=== PATIENT | female | born 1985 | race Caucasian/White ===

== ENCOUNTER 2016-10-01 10:56 | Emergency (ER) | payer MEDICAID ==
--- NOTE | 2016-10-01 12:10 | EDPHY ---
H & P Time Seen by Provider: 10/01/16 11:29 HPI/ROS: CHIEF COMPLAINT: toothache HISTORY OF PRESENT ILLNESS: Patient is a 30-year-old female who presents emergency department with left lower frontal tooth ache. Her pain is moderate and does not radiate. Patient states her pain started approximately 1 week ago. It has worsened over the last 2 days. She sustained no recent injury. No fevers or chills. No nausea or vomiting. Patient has had numerous dental extractions previously. Her dentist is unable to accommodate her for another few weeks. REVIEW OF SYSTEMS: My complete review of systems is negative except as mentioned in the HPI. Past Medical/Surgical History: Denies Past surgical history: Denies Smoking Status: Former smoker Physical Exam: General Appearance: Alert and no distress. Head: Pupils equal. Normal. Oral exam: Patient has poor dentition. Her left lower frontal tooth does have some discoloration at the base. There is no surrounding tissue erythema or swelling. There is no visible dental fracture. No facial swelling. No facial redness. Respiratory: No respiratory distress. Cardiac: regular rate and rhythm. Extremities: Full range of motion, normal appearing. Skin: No rashes or lesions. Neuro: Alert. Normal mood and affect. Constitutional: Initial Vital Signs Temperature (C) 36.7 C 10/01/16 11:04 Heart Rate 76 10/01/16 11:04 Respiratory Rate 16 10/01/16 11:04 Blood Pressure 115/73 10/01/16 11:04 O2 Sat (%) 97 10/01/16 11:04 O2 Delivery Mode Room Air Allergies/Adverse Reactions: Bee Stings Allergy (Severe, Uncoded 05/07/16 22:37) Swelling/neck,face,throat Home Medications: Medication Instructions Recorded Albuterol Hfa Anes Only [Proair 2 puffs IH QID 05/07/16 Hfa Icu (*)] Penicillin V Potassium 500 mg PO TID 10 Days 10/01/16 oxyCODONE/APAP 5/325 [Percocet 1 - 2 tab PO Q4PRN PRN #11 tab 10/01/16 5/325 (*)] Medical Decision Making ED Course/Re-evaluation: In the emergency department I discussed possible etiologies. I explained the patient needs to take her entire course of antibiotics. She needs close follow- up with the dentist. She was given Dental Aid referral as well as the option to follow up with her own dentist. Differential Diagnosis: My differential includes but is not limited to toothache, dental caries, dental abscess, cellulitis, dental fracture Departure - Departure Disposition: Home, Routine, Self-Care Clinical Impression: Tooth pain Condition: Good Instructions: Toothache (ED) Additional Instructions: You need close follow-up with a dentist to re-evaluate your tooth. Antibiotics are only a temporary fix. Referrals: NONE *PRIMARY CARE P,. [Primary Care Provider] - As per Instructions Dental Aid [Outside] - 3-4 days, if not improved Prescriptions: Penicillin V Potassium 500 mg PO TID 10 Days oxyCODONE/APAP 5/325 [Percocet 5/325 (*)] 1 - 2 tab PO Q4PRN PRN #11 tab PRN Reason: For Moderate To Severe Pain
[2016-10-01 12:28] VITALS: BP 153/75; PULSE 65; RESP 18; TEMP 98.4; O2SAT 96
== END 2016-10-01 12:28 | disposition home or self-care (01) ==
DX: K08.89 Other specified disorders of teeth and supporting structures (principal); Z87.891 Personal history of nicotine dependence

== ENCOUNTER 2016-12-01 06:38 | Emergency (ER) | payer MEDICAID ==
--- NOTE | 2016-12-01 06:40 | EDPHY ---
H & P HPI/ROS: HPI CHIEF COMPLAINT: Sore throat since this am HISTORY OF PRESENT ILLNESS: This patient very pleasant 30-year-old female no significant medical history, she is currently 2 months , she presents to the emergency room by EMS with sore throat that started earlier this morning approximately 2 hours ago. No cough, no fever, no vomiting. She is able to swallow her secretions appropriately she has no change in voice. Of note on exam here she has 2+ bilateral symmetrical tonsillar bed, exudate present, no signs of SECURITY VEHICLE PATROL OFFICER, Hood's RPA, no change in voice, nontoxic appearing, no trismus. Past Medical History: No significant medical history Past Surgical History: No significant surgical history Social History: Denies daily use drugs alcohol tobacco products Family History: Noncontributory ROS REVIEW OF SYSTEMS: A comprehensive 10 point review of systems is otherwise negative aside from elements mentioned in the history of present illness. Exam Constitutional triage nursing summary reviewed, vital signs reviewed, awake/ alert. Eyes normal conjunctivae and sclera, EOMI, PERRLA. HENT posterior pharynx: 2+ tonsillar beds, symmetrical, exudate present on bilateral tonsillar bed, uvula midline, no signs of SECURITY VEHICLE PATROL OFFICER, atraumatic, moist mucus membranes, no epistaxis, neck supple/ no meningismus, no raccoon eyes. Respiratory clear to auscultation bilaterally, normal breath sounds, no respiratory distress, no wheezing. Cardiovascular rate normal, regular rhythm, no murmur, no edema, distal pulses normal. Gastrointestinal soft, non-tender, no rebound, no guarding, normal bowel sounds, no distension, no pulsatile mass. Genitourinary no CVA tenderness. Musculoskeletal no midline vertebral tenderness, full range of motion, no calf swelling, no tenderness of extremities, no meningismus, good pulses, neurovascularly intact. Skin pink, warm, & dry, no rash, skin atraumatic. Neurologic awake, alert and oriented x 3, AAOx3, moves all 4 extremities equally, motor intact, sensory intact, CN II-XII intact, normal cerebellar, normal vision, normal speech. Psychiatric normal mood/affect. Heme/Lymph/Immune no lymphadenopathy. Differential Diagnosis: Viral pharyngitis, strep pharyngitis, mono, early SECUR[employer] PATROL OFFICER, no signs of RPA plan for this patient patient will be given 1st dose of amoxicillin here as this appears to be strep pharyngitis, Decadron for pain control. She is 2 months . She does also tell me that she has recently treated for urinary tract infection however has not started her antibiotic. I will start her on amoxicillin here and Decadron she understands to contact deformity see to see what antibiotic she was supposed to be started on and contact that prescribe her to let her know that she most likely has strep pharyngitis has been started on amoxicillin. She understands return emergency room if she has worsening symptoms questions or concerns includes high fever, trouble swallowing , worsening pain. 1st dose of amoxicillin given here in emergency room, 1st dose of Decadron. Source: Patient, EMS - Medical/Surgical History Hx Asthma: Yes Hx Chronic Respiratory Disease: No Hx Diabetes: No Hx Cardiac Disease: No Hx Renal Disease: No Hx Cirrhosis: No Hx Alcoholism: No Hx HIV/AIDS: No Hx Splenectomy or Spleen Trauma: No Other PMH: DENIES - Social History Smoking Status: Former smoker Allergies/Adverse Reactions: Bee Stings Allergy (Severe, Uncoded 05/07/16 22:37) Swelling/neck,face,throat Home Medications: Medication Instructions Recorded Amoxicillin 500 mg PO TID 7 Days 12/01/16 Dexamethasone [Decadron 4 MG (*)] 4 mg PO DAILY #5 tab 12/01/16 12/01/16 Departure - Departure Disposition: Home, Routine, Self-Care Clinical Impression: Strep pharyngitis Condition: Good Instructions: Tonsillitis (ED), Strep Throat (ED), Pharyngitis (ED) Additional Instructions: 1. Make sure to drink lots of fluids stay well-hydrated 2. return emergency room if you have any worsening symptoms questions or concerns. 3.Take amoxicillin as prescribed. 4. You can take Decadron which is steroid to help reduce inflammation. He may also take Tylenol for pain control. Referrals: Patient,NotPresent [Primary Care Provider] - As per Instructions Prescriptions: Amoxicillin 500 mg PO TID 7 Days Dexamethasone [Decadron 4 MG (*)] 4 mg PO DAILY #5 tab
[2016-12-01] MEDS ORDERED: DEXAMETHASONE 4 MG TAB PO ONE (06:45)
[2016-12-01 08:43] VITALS: BP 129/70; PULSE 86; RESP 16; TEMP 97.9; O2SAT 97
== END 2016-12-01 08:43 | disposition home or self-care (01) ==
LOC: EDUNIT#
DX: O99.519 Diseases of the respiratory system complicating pregnancy, unspecified trimester (principal); J02.0 Streptococcal pharyngitis; J45.909 Unspecified asthma, uncomplicated; Z87.891 Personal history of nicotine dependence; Z3A.00 Weeks of gestation of pregnancy not specified

== ENCOUNTER 2016-12-21 07:56 | Emergency (ER) | payer MEDICAID ==
--- NOTE | 2016-12-21 08:01 | EDPHY ---
H & P Time Seen by Provider: 12/21/16 08:01 - Medical/Surgical History Hx Asthma: Yes Hx Chronic Respiratory Disease: No Hx Diabetes: No Hx Cardiac Disease: No Hx Renal Disease: No Hx Cirrhosis: No Hx Alcoholism: No Hx HIV/AIDS: No Hx Splenectomy or Spleen Trauma: No Other PMH: DENIES - Social History Smoking Status: Former smoker Constitutional: Initial Vital Signs Temperature (C) 36.8 C 12/21/16 08:02 Heart Rate 72 12/21/16 08:02 Respiratory Rate 16 12/21/16 08:02 Blood Pressure 137/82 H 12/21/16 08:02 O2 Sat (%) 97 12/21/16 08:02 O2 Delivery Mode Room Air Allergies/Adverse Reactions: Bee Stings Allergy (Severe, Uncoded 05/07/16 22:37) Swelling/neck,face,throat Home Medications: Medication Instructions Recorded Amoxicillin 500 mg PO TID 7 Days 12/01/16 Dexamethasone [Decadron 4 MG (*)] 4 mg PO DAILY #5 tab 12/01/16 12/01/16 Cephalexin [Keflex (RX)] 500 mg PO TID #30 cap 12/21/16 Medical Decision Making ED Course/Re-evaluation: CHIEF COMPLAINT: "My throat feels really swollen" HISTORY OF PRESENT ILLNESS: The patient is a 9-week 30 y/o female complaining of a sore throat with painful swallowing. She was seen here 3 weeks ago for a sore throat and prescribed amoxicillin and Decadron. Those symptoms resolved until 3 days ago when her sore throat returned. It is not associated with swelling and pain with swallowing. She denies cough, fever, vomiting, abdominal pain, or diarrhea. No other pertinent medical history. REVIEW OF SYSTEMS: A 10 point review of systems was performed and is negative with the exception of the elements mentioned in the history of present illness. PHYSICAL EXAM: HR, BP, O2 Sat, RR. Temp noted General Appearance: Alert, well hydrated, appropriate, and non-toxic appearing. Obese. Head: Atraumatic without scalp tenderness or obvious injury Eyes: Pupils equal, round, reactive to light and accommodation, EOMI, no trauma , no injection. Ears: Clear bilaterally, no perforation, normal landmarks Nose: Atraumatic, no rhinorrhea, clear. Throat: Significant erythema and swollen tonsils bilaterally, no exudates, no lesions, mucus membranes moist. Hoarse voice. No stridor. Neck: Supple, nontender, no lymphadenopathy. Respiratory: No retractions, no distress, no wheezes, and no accessory muscle use. Lungs are clear to auscultation bilaterally. Cardiovascular: Regular rate and rhythm, no murmurs, rubs, or gallops. Good capillary refill all extremities. Gastrointestinal: Abdomen is soft, nontender, non-distended, no masses, no rebound, no guarding, no peritoneal signs. Musculoskeletal: Normal active ROM of all extremities, atraumatic. Neurological: Alert, appropriate, and interactive. Nonfocal neuro exam. Skin: No rashes, good turgor, no nodules on palpation. Past medical history: 9-weeks Past surgical history: denies Family history: noncontributory Social history: Lives in [place]. In a relationship. DIFFERENTIAL DIAGNOSIS: The differential diagnosis for the patient's sore throat included but was not limited to tonsillitis, bacterial or viral pharyngitis, pneumonia, viral syndrome, and sepsis. MEDICAL DECISION MAKING: This is a 30 y/o female presenting with a 3-day history of significant pain with swallowing. She was treated for bacterial pharyngitis 3 weeks ago and her symptoms improved until recurring 3 days ago. On exam, she has significant pharyngeal erythema with bilateral tonsillar swelling. She has no signs of respiratory distress. Due to , I will not prescribe her steroids or pain medication. She will be discharged with script for Keflex and recommendation to use Tylenol and ibuprofen as needed for pain. She's been referred to ENT for follow up. She is comfortable with this plan. Return precautions given. Departure - Departure Disposition: Home, Routine, Self-Care Clinical Impression: Tonsillitis Condition: Good Instructions: Tonsillitis (ED) Additional Instructions: 1. Take Keflex as prescribed. Be sure to complete the entire prescription. 2. Use Tylenol or ibuprofen as directed on the packaging if needed for pain or fever for the next 2-3 days. 3. Follow up with ENT if your symptoms persist for more than a week or if you continue to get recurrent throat infections. 4. Return to the ED for difficulty breathing, inability to swallow, or other worsening of condition. Referrals: NONE *PRIMARY CARE P,. [Primary Care Provider] - As per Instructions Pavel Meier MD [Medical Doctor] - As per Instructions Prescriptions: Cephalexin [Keflex (RX)] 500 mg PO TID #30 cap Report Scribed for: Mike Sanchez Report Scribed by: Florence Payne Date of Report: 12/21/16 Time of Report: 08:09
[2016-12-21 08:03] VITALS: RESP 16
[2016-12-21 08:15] VITALS: BP 120/75; PULSE 70; TEMP 97.7; O2SAT 96
== END 2016-12-21 08:14 | disposition home or self-care (01) ==
DX: O99.511 Diseases of the respiratory system complicating pregnancy, first trimester (principal); J03.90 Acute tonsillitis, unspecified; J45.909 Unspecified asthma, uncomplicated; Z3A.09 9 weeks gestation of pregnancy; Z87.891 Personal history of nicotine dependence

== ENCOUNTER 2017-03-13 08:10 | Observation (INO) | payer MEDICAID ==
--- NOTE | 2017-03-13 10:22 | SOAPPROG ---
SOAP Progress Note Assessment/Plan: Assessment: at 20w6d EGA here for concern for davide discharge at home No e/o active bleeding, abruption, previa, labor, distress No e/o UTI No e/o vaginal infection Plan: Discharge home Pelvic rest x 72 hours Given note to be off work today Vaginal culture collected F/u as scheduled with Dr. Pearson Subjective: 31 yo ( x 1 2011, SAB x 2 prior to first ) at 20 6/7 weeks of here for evaluation for abnormal discharge. So far uncomplicated per her report, follows with Dr. Pearson. First c/b GHTN at term. Had anatomy US last week and was told everything was normal, no previa. Today woke up and had some "orange" colored discharge. No bright red blood. Put some toilet paper up into vagina and confirmed this is where the discharge was coming from. No cramping or pain. Active baby, feels fluttering. No intercourse in last 24 hours. She tried calling her doctor but was unable to leave a message and per her the message stated "we will only call you back if you have caller ID". Since she wasn't sure she called 911 to ask advice but was told they could not give her medical advice. At that time she decided to come to the closest hospital for evaluation. She also delivered at [facility] for her last , and would like to deliver here with this one. Is supposed to be delivered at [facility] Objective: VS reviewed, WNL Gen: NAD, obese female Resp: unlabored CV: RRR Abd: obese, soft, nontender Ext: no edema SSE: cervix long/closed. No blood in vault. Physiologic discharge SVE: long/closed FHR 160s Bedside US: anterior placenta, no previa. Viable SIUP in breech presentation - Time Spent With Patient Time Spent With Patient: 35 minutes ICD10 Worksheet Patient Problems: Problems Problem Status Onset 20 weeks gestation of Acute
== END 2017-03-13 10:30 | disposition home or self-care (01) ==
LOC: FLD 08:10
PROVIDERS: ADMIT Obstetrics & Gynecology; ATTEND Obstetrics & Gynecology
DX: O23.92 Unspecified genitourinary tract infection in pregnancy, second trimester (principal); Z3A.20 20 weeks gestation of pregnancy
CPT/HCPCS: G0378 ×2

== ENCOUNTER 2017-05-20 13:50 | Emergency (ER) | payer MEDICAID ==
[2017-05-20 13:55] VITALS: RESP 18
--- NOTE | 2017-05-20 15:36 | EDPHY ---
H & P Smoking Status: Never smoked Time Seen by Provider: 05/20/17 15:05 HPI/ROS: CHIEF COMPLAINT: "I have a bump on my buttock" HISTORY OF PRESENT ILLNESS: 31-year-old female currently 30 weeks , no history of chronic skin infections or known history of cutaneous MRSA, complaining of 2 weeks of a progressively enlarging tender draining area at the cleft of her buttock. Her friend has been puncturing the area with purulent foul-smelling material however the enlargement continues. No fever no chills. No nausea or vomiting. No flu-like symptoms. PHYSICAL EXAM (Prior to examination, patient consented to physical exam, hands were washed and my usual and customary physical exam procedures followed) 1) GENERAL: Well-developed, well-nourished, alert and oriented. Appears to be in no acute distress. 2) HEAD: Normocephalic 3) HEENT: sclera anicteric 4) LUNGS: Breathing comfortably. 5) SKIN (with female nurse Adeola at bedside): Pilonidal abscess, draining. No extension to the perianal region. (Lizzie Lassiter) Constitutional: Initial Vital Signs Temperature (C) 36.6 C 05/20/17 13:52 Heart Rate 78 05/20/17 13:52 Respiratory Rate 18 05/20/17 13:52 Blood Pressure 163/103 H 05/20/17 13:52 O2 Sat (%) 98 05/20/17 13:52 O2 Delivery Mode Room Air Allergies/Adverse Reactions: Bee Stings Allergy (Severe, Uncoded 05/07/16 22:37) Swelling/neck,face,throat Home Medications: Medication Instructions Recorded 12/01/16 Cephalexin [Keflex] 500 mg PO TID 7 Days cap 05/20/17 MDM/Departure - MDM Procedures: Procedure: Abscess drainage. The patient's abscess was located on the cleft of the buttock. I obtained verbal consent from the patient to drain the abscess who was informed about the possibility of bleeding and pain. The abscess was incised with a scalpel and a large amount of purulent drainage was expressed. I irrigated the wound and placed some packing. The patient tolerated the procedure well. The procedure was performed by myself. (Lizzie Lassiter) ED Course/Re-evaluation: Patient has evidence of pilonidal abscess which was incised, drained. Started on Keflex. Recommend return to the ER in 2 days for recheck. Usual customary wound precautions instructions provided. (Lizzie Lassiter) I did not see this patient while she was in the emergency department. However her care was discussed with PA while the patient was in the department. I agree with treatment plan and management (Gerald Carpio) - Depart Disposition: Home, Routine, Self-Care Clinical Impression: Pilonidal abscess Condition: Good Instructions: Pilonidal Cyst (ED) Additional Instructions: Return to the ER if you develop redness, swelling, discharge, warmth to the wound, pain with defecation, or any other symptoms that concern you. Prescriptions: Cephalexin [Keflex] 500 mg PO TID 7 Days cap Referrals: Return, to the ER in 2 days for recheck [Other] - As per Instructions
[2017-05-20 15:46] VITALS: BP 152/82; PULSE 91; TEMP 98.1; O2SAT 94
== END 2017-05-20 15:47 | disposition home or self-care (01) ==
PROC: 0H98XZZ Drainage of Buttock Skin, External Approach (ICD-10-PCS; principal; 2017-05-20)
DX: O99.713 Diseases of the skin and subcutaneous tissue complicating pregnancy, third trimester (principal); L05.01 Pilonidal cyst with abscess; Z3A.30 30 weeks gestation of pregnancy

== ENCOUNTER 2017-05-22 11:07 | Emergency (ER) | payer MEDICAID ==
[2017-05-22 11:28] VITALS: BP 145/78; PULSE 88; RESP 16; TEMP 98.1; O2SAT 98
--- NOTE | 2017-05-22 12:17 | EDPHY ---
H & P Smoking Status: Never smoked Time Seen by Provider: 05/22/17 11:39 HPI/ROS: CHIEF COMPLAINT: Wound recheck HISTORY OF PRESENT ILLNESS: 31-year-old female presents to the emergency department with an abscess recheck to her buttocks. Patient was seen 2 days ago for incision and drainage. She was started on antibiotics. She has an incision and drainage and had packing placed. She denies fevers. She has had some drainage sister has been changing the bandage. ROS: Denies fevers, chills, back pain (Nayely Henao) Past Medical/Surgical History: 30 weeks (Nayely Henao) Social History: (Nayely Henao) Physical Exam: On examination the patient has packing placed in the left buttock. There is some surrounding induration. Packing was easily removed. No recurring purulent drainage noted. Minimally tender to palpate. No lymphangitis. No surrounding redness. (Nayely Henao) Constitutional: Initial Vital Signs Temperature (C) 36.7 C 05/22/17 11:26 Heart Rate 88 05/22/17 11:26 Respiratory Rate 16 05/22/17 11:26 Blood Pressure 145/78 H 05/22/17 11:26 O2 Sat (%) 98 05/22/17 11:26 O2 Delivery Mode Room Air Allergies/Adverse Reactions: Bee Stings Allergy (Severe, Uncoded 05/07/16 22:37) Swelling/neck,face,throat Home Medications: Medication Instructions Recorded 12/01/16 Cephalexin [Keflex] 500 mg PO TID 7 Days cap 05/20/17 MDM/Departure - MDM Procedures: Packing was easily removed. No further purulent drainage. (Monica Henaomargarette Chew) ED Course/Re-evaluation: 31-year-old female presents with recheck of abscess to her buttock. Packing was removed. She will continue antibiotics. I encouraged warm soaks. (Nayely Henao) - Depart Disposition: Home, Routine, Self-Care Clinical Impression: Encounter for recheck of abscess following incision and drainage Condition: Good Instructions: Abscess Follow-up (ED) Additional Instructions: Continue antibiotics as prescribed. Soak buttock in warm water as discussed. Return to the emergency department if you developed recurring swelling, fever, or if you feel worse in any way. Referrals: Chani Paredes MD [[facility] Primary Care Provider] - 2-3 days, call for appt. (Primary care provider library consultant)
== END 2017-05-22 12:22 | disposition home or self-care (01) ==
DX: O99.89 Other specified diseases and conditions complicating pregnancy, childbirth and the puerperium (principal); Z3A.30 30 weeks gestation of pregnancy; Z48.01 Encounter for change or removal of surgical wound dressing

== ENCOUNTER 2017-06-11 23:26 | Observation (INO) | payer MEDICAID ==
[2017-06-12] MEDS ORDERED: FAMOTIDINE 20 MG TAB PO SCH (00:45)
== END 2017-06-12 01:00 | disposition home or self-care (01) ==
LOC: FLD 23:26
PROVIDERS: ADMIT Obstetrics & Gynecology Gynecology; ATTEND Obstetrics & Gynecology Gynecology
DX: O26.893 Other specified pregnancy related conditions, third trimester (principal); R10.13 Epigastric pain; Z3A.33 33 weeks gestation of pregnancy
CPT/HCPCS: 59025; G0378

== ENCOUNTER 2017-06-19 11:12 | Emergency (ER) | payer MEDICAID ==
[2017-06-19 11:17] VITALS: TEMP 97.9; O2SAT 96
--- NOTE | 2017-06-19 12:31 | EDPHY ---
HPI/HX/ROS/PE/MDM Narrative: CHIEF COMPLAINT: Cold symptoms HISTORY OF PRESENT ILLNESS: This patient is an obese 31 y/o female who is currently 34 weeks arriving with her complaining of cold symptoms onset three days ago. She endorses productive cough with greenish sputum, sore throat, congestion, chest tightness, and subjective fever. She has history of asthma and has been using her inhaler. She has not slept in three days due to cough. She had a bloody nose yesterday. She has only taken Benadryl for symptom relief. She tried tea, but felt it made her throat more dry. She states her baby seems normal and is moving. No chills, chest pain, shortness of breath, palpitations, vomiting, diarrhea, urinary complaints, headache, lightheadedness. REVIEW OF SYSTEMS: Aside from elements discussed in the HPI, a comprehensive 10-point review of systems was reviewed and is negative. PAST MEDICAL HISTORY: Asthma. . SOCIAL HISTORY: . at bedside. OB Dr. Pearson. VITAL SIGNS: see nurse's notes. GENERAL: Obese, well-developed, well-nourished, in no acute distress. HEENT: Atraumatic Eyes: PERRL, EOMI, no conjunctival injection. Ears: TM clear bilaterally. Nose: No discharge. Mouth: moist mucous membranes. Pharynx: no erythema, no exudates, no swelling, no abscess. Uvula is midline. NECK: Supple, no adenopathy, no meningismus, no tenderness. Negative Kernig's and Brudzinski's. LUNGS: Expiratory wheezes with cough. No rhonchi or rales. CARDIAC: Regular rate and rhythm, no rubs, murmurs or gallops. ABDOMEN: Gravid. Soft, nontender, bowel sounds normal. BACK: No CVA tenderness. EXTREMITIES: Normal, no edema, FROM. NEURO: Alert and oriented, grossly nonfocal. SKIN: Warm and dry, no rash. PSYCHIATRIC: Normal mentation, no agitation. Portions of this note were transcribed by a registered medical assistant. I personally performed a history, physical exam, medical decision making, and confirmed accuracy of information the transcribed note. ED Course: 31 y/o female who is 34 weeks presents with three day history of productive cough, sore throat, and congestion. Plan to discharge home in good condition after heart tone monitoring with prescription for Amoxicillin. Discussed use of Flonase and encouraged continued use of Albuterol as well as a humidifier for symptom relief. She will follow up with her COMPLIANCE ADMINISTRATOR. 13:12 heart tones 150. Patient cleared for discharge. MDM: Differential diagnosis of the patient's symptom complex was considered including but not limited to viral upper respiratory infection, viral pharyngitis, strep pharyngitis, bacterial pharyngitis, tonsillitis, influenza, pulmonary embolism. General Time Seen by Provider: 06/19/17 12:22 Initial Vital Signs: Initial Vital Signs Temperature (C) 36.6 C 06/19/17 11:15 Heart Rate 83 06/19/17 11:15 Respiratory Rate 18 06/19/17 11:15 Blood Pressure 147/74 H 06/19/17 11:15 O2 Sat (%) 96 06/19/17 11:15 O2 Delivery Mode Room Air Allergies/Adverse Reactions: Bee Stings Allergy (Severe, Uncoded 06/19/17 11:15) Swelling/neck,face,throat Home Medications: Medication Instructions Recorded 12/01/16 Amoxicillin Trihydrate 500 mg PO TID 7 Days cap 06/19/17 [Amoxicillin] Departure - Departure Disposition: Home, Routine, Self-Care Clinical Impression: Upper respiratory infection Qualifiers: URI type: unspecified viral URI Qualified Code(s): J06.9 - Acute upper respiratory infection, unspecified Acute bronchitis Qualifiers: Bronchitis organism: other organism Qualified Code(s): J20.8 - Acute bronchitis due to other specified organisms Condition: Good Instructions: Upper Respiratory Infection (ED), Acute Bronchitis (ED) Additional Instructions: Take Amoxicillin as prescribed. It is important to finish your entire course of antibiotics even if you are feeling better. Use Flonase nasal spray, available over the counter to relieve your congestion. Continue to use your Albuterol inhaler. Use a humidifier in your room at night to help with the cough. Stay well-hydrated by drinking plenty of fluids. Be sure to get lots of rest. Follow up with your COMPLIANCE ADMINISTRATOR physician for further discussion of what medications you can take to relieve symptoms and for reevaluation. Return to the emergency department immediately for high fever, severe headache or neck pain, difficulty breathing, abdominal pain, rash or other worsening of condition. Referrals: Roberto Pearson [Medical Doctor] - As per Instructions Prescriptions: Amoxicillin Trihydrate [Amoxicillin] 500 mg PO TID 7 Days cap Report Scribed for: Divina Tristan Report Scribed by: Maru Sanchez Date of Report: 06/19/17 Time of Report: 12:38
[2017-06-19 13:39] VITALS: BP 138/77; PULSE 20; RESP 77
== END 2017-06-19 13:37 | disposition home or self-care (01) ==
DX: O99.513 Diseases of the respiratory system complicating pregnancy, third trimester (principal); J06.9 Acute upper respiratory infection, unspecified; J20.8 Acute bronchitis due to other specified organisms; J45.909 Unspecified asthma, uncomplicated; Z3A.34 34 weeks gestation of pregnancy

== ENCOUNTER 2017-07-05 14:58 | Observation (INO) | payer MEDICAID ==
--- NOTE | 2017-07-05 15:20 | OBPROG ---
Labor Progress Note Assessment/Plan: Assessment: Denies contractions complaint of headache behind right eye blurry vision spots before eyes dizzy nausea denies epigastric pain cat 1 fhr deferred exam no complaint of contractions Plan:pih labs, obtain prenatals, iv fluids, zofran for nausea 07/05/17 15:17 07/05/17 15:24 Subjective/Intrapartum Course: 07/05/17 15:20 headache, blurry vision, sharp pain from fundus to vagina, nausea, denies contractions leaking ,bleeding, cramping, feeling movement. - FHR Assessment Valencia FHR (bpm): 135 FHR Pattern Variability: Moderate FHR Category: 1 ICD10 Worksheet Patient Problems: Problems Problem Status Onset 20 weeks gestation of Acute
[2017-07-05] MEDS ORDERED: LR 1,000 ML IV SCH (15:30)
[2017-07-05 15:59] LABS: % IMMATURE GRANULYOCYTES 0.6 % (0.0-1.1); ABSOLUTE IMMATURE GRANULOCYTES 0.06 10^3/uL (0.00-0.10); ADD DIFF? NO; ADD MORPH? NO; ADD SCAN? NO; ATYPICAL LYMPHOCYTE FLAG 0 (0-99); FRAGMENT RBC FLAG 0 (0-99); HEMATOCRIT 37.2 % (38.0-47.0); HEMOGLOBIN 12.7 g/dL (12.6-16.3); LEFT SHIFT FLG 0 (0-99); LIPEMIA HEMOLYSIS FLAG 90 (0-99); MEAN CELL HEMOGLOBIN 30.5 pg (27.9-34.1); MEAN CELL HEMOGLOBIN CONCENTR. 34.1 g/dL (32.4-36.7); MEAN CELL VOLUME 89.2 fL (81.5-99.8); MEAN PLATELET VOLUME 11.3 fL (8.7-11.7); PLATELET CLUMPS FLAG 0 (0-99); PLATELET COUNT 253 10^3/uL (150-400); RED BLOOD CELL COUNT 4.17 10^6/uL (4.18-5.33); RED CELL DISTRIBUTION WIDTH 14.8 % (11.5-15.2)
[2017-07-05 16:00] LABS: ALANINE AMINOTRANSFERASE 17 IU/L (9-52); ASPARTATE AMINOTRANSFERASE 13 IU/L (14-46); BILIRUBIN,TOTAL 0.2 mg/dL (0.1-1.4); BILIRUBIN-CONJUGATED 0.2 mg/dL (0.0-0.5); CREATININE 0.6 mg/dL (0.6-1.0); GLOMERULAR FILTRATION RATE > 60; LACTATE DEHYDROGENASE 384 IU/L (313-618); URIC ACID 4.4 mg/dL (2.5-6.8)
[2017-07-05] MEDS ORDERED: ACETAMINOPHEN 500 MG TAB ONE (16:31)
--- NOTE | 2017-07-05 20:03 | OBPROG ---
Labor Progress Note Assessment/Plan: Assessment: Denies contractions headache better after tylenol fluids and food blurry vision resolved with rest spots before eyes/ resolved nausea and dizziness resolved with food, water and rest denies epigastric pain cat 1 fhr deferred exam no complaint of contractions denies epigastric pain pih labs wnl pto c random urine 0.[address] ava villasenor ok + movement denies leaking , bleeding, or cramping before dischagre verbalized understanding of POC Plan:pih symptoms discussed fu at patients practice discussed elevated bp discussed labs and copy given patient verbalized understanding of POC 07/05/17 15:17 07/05/17 15:24 07/05/17 19:59 Subjective/Intrapartum Course: 07/05/17 15:20 headache, blurry vision, sharp pain from fundus to vagina, nausea, denies contractions leaking ,bleeding, cramping, feeling movement. Objective: 07/05/17 15:36 07/05/17 15:36 Uric Acid 4.4 mg/dL (2.5-6.8) 07/05/17 15:36 Total Bilirubin 0.2 mg/dL (0.1-1.4) 07/05/17 15:36 Conjugated Bilirubin 0.2 mg/dL (0.0-0.5) 07/05/17 15:36 Unconjugated Bilirubin 0.0 mg/dL (0.0-1.1) 07/05/17 15:36 AST 13 IU/L (14-46) L 07/05/17 15:36 ALT 17 IU/L (9-52) 07/05/17 15:36 Lactate Dehydrogenase 384 IU/L (313-618) 07/05/17 15:36 Oxytocin Orders Assessment - Pre-Induction/Augmentation Assessment Gestational Age: 38 week(s) and 3 day(s) ICD10 Worksheet Patient Problems: Problems Problem Status Onset 20 weeks gestation of Acute
--- NOTE | 2017-07-05 20:32 | GHP ---
[f rep st] HISTORY AND PHYSICAL DATE OF ADMISSION: 07/05/2017 HISTORY OF PRESENT ILLNESS: The patient is a 31-year-old, 4, para 1, A2 , living 1, who comes in on 07/05/2017 with complaints of abdominal pain, headache, blurry vision, dizziness, back pain. States feeling positive movement. Denies leaking, bleeding or cramping. Has been routinely seen at [facility] in [place] per patient. The patient is also supposed to have a visit on , 07/08/2017. The patient's EDC is 07/26/2017 which makes her 37 weeks. MEDICAL HISTORY: Elevated BMI, anemia. SURGICAL HISTORY: Benign. Denies gynecological surgery. Denies surgery. FAMILY HISTORY: Mother has diabetes mellitus, heart disease and hypertension. GYNECOLOGICAL HISTORY: Menarche at the age of 10. Heavy flow. No control, per patient. SOCIAL HISTORY: Denies tobacco use. Denies drug use. Occasional caffeine. has 1 other child. PREVIOUS HISTORY: In 10/31/2011 at 38 weeks, 7 pounds 1 ounce, a female vaginally with an epidural. Debbie is that child's name. REVIEW OF SYSTEMS: Times 7 is benign. States dizzy, blurry vision, nausea, and headache, PRESENT HISTORY: Patient had an early ultrasound that gave her a due date of 07/26/2017, us was done at 6 weeks and 2 days. Today, patient's main complaint was diffuse headache, blurry vision, spots, abdominal pain that went from the upper fundus down to the vaginal area that was sharp. On admission patient had elevated blood pressure. PIH labs were drawn that were negative. P to C ratio was 0.225. Consult with Dr. Ivonne Mathews on plan of care. The patient was discharged home with instructions to follow up on with Dr. Roberto Pearson. PHYSICAL EXAMINATION: GENERAL: Patient is awake, alert, oriented x3. LUNGS: Clear bilaterally. ABDOMEN: Bowel sounds are positive in all 4 quadrants. EXTREMITIES: DTRs were 1+ bilaterally. No clonus was noted. Homans sign was negative bilaterally. All of patient's symptoms except for her headache resolved. Tylenol 1 g was given for her headache. Everything seemed to get better with rest, food and fluids. The patient was instructed on PIH symptoms and verbalized understanding of reasons to call her provider if symptoms got worse.Understood need to keep fu appt on . /[id number]/MODL MTDD
== END 2017-07-05 19:53 | disposition home or self-care (01) ==
LOC: FLD 14:58
PROVIDERS: ADMIT Advanced Practice Midwife; ATTEND Advanced Practice Midwife
DX: O99.89 Other specified diseases and conditions complicating pregnancy, childbirth and the puerperium (principal); Z3A.38 38 weeks gestation of pregnancy; R51 Headache; R10.9 Unspecified abdominal pain

== ENCOUNTER 2017-07-14 20:08 | Inpatient (IN) | payer MEDICAID ==
[2017-07-14 21:31] LABS: PLATELET COUNT 276 10^3/uL (150-400)
[2017-07-14] MEDS ORDERED: CALCIUM GLUC 10% 1 GM/10 ML VIAL IVP PRN ×2 (23:02)
[2017-07-14] MEDS ORDERED: MAGNESIUM SULF 4 GM/WATER 100 ML IV ONE ×2 (23:04)
[2017-07-14] MEDS ORDERED: OLIVE OIL 118 ML BTL MISC PRN ×2 (23:08)
[2017-07-14] MEDS ORDERED: EPSOM SALT 454 GM TP PRN ×2 (23:08)
[2017-07-14] MEDS ORDERED: OXYTOCIN 20 UNIT in LR 1,000 ML IV PRN (23:08)
[2017-07-14] MEDS ORDERED: TERBUTALINE SULFATE 1 MG/ML VIAL IV PRN ×2 (23:08)
[2017-07-14] MEDS ORDERED: LR 1,000 ML IV PRN ×2 (23:08)
[2017-07-14] MEDS ORDERED: IBUPROFEN 600 MG TAB PO PRN ×2 (23:08)
[2017-07-15] MEDS ORDERED: CALCIUM CARBONATE 500 MG CHEWABLE TAB PO PRN ×2 (00:51)
--- NOTE | 2017-07-15 01:34 | PDGENHP ---
History and Physical - Chief Complaint headache, cramping - History of Present Illness 31-year-old white female at 38.2 weeks gestation (EDC 07/26/17 by 9 week scan) presents to L&D with complaints of headache and contraction pain. Patient was found to have irregular contractions, 1cm/thick cervix, and elevated BPs. She is a patient of [facility] in [place]. Upon review of her record, her is complicated by morbid obesity and chronic hypertension. She reports headache today across her forehead. She reports spots in vision over past 2 days. BPs were 140s-170s/80s-100s while being evaluated in triage. Patient denies RUQ pain. She reports swelling in all 4 extremities. O+ / Antibody screen negative / rubella immune / WDRL NR / HBsAg Negative / HIV Neg / HCV Neg / GC Neg/Neg / 1 Hr GTT 187 (3 hr not done) / GBS negative (performed 07/08/17). OB Hx: G1 & G2 = SAB, G3 = of VFI (10/31/11), 7#1oz History Information - Allergies/Home Medication List Allergies/Adverse Reactions: Bee Stings Allergy (Severe, Uncoded 06/19/17 11:15) Swelling/neck,face,throat Home Medications: 12/01/16 [Last Taken Unknown] I have personally reviewed and updated: family history, medical history, social history, surgical history Past Medical History: morbid obesity - Surgical History Additional surgical history: denies prior [employer] surgery - Family History Positive for: non-pertinent - Social History Smoking Status: Former smoker Review of Systems Review of Systems: ROS: 10pt was reviewed & negative except for what was stated in HPI & below Physical Exam Physical Exam: Severe range systolic BPs Constitutional: no apparent distress Eyes: PERRL Ears, Nose, Mouth, Throat: moist mucous membranes Cardiovascular: regular rate and rhythym, no murmur, rub, or gallop Respiratory: no respiratory distress, no rales or rhonchi, clear to auscultation Gastrointestinal: other (morbidly obese abdomen, difficult to palpate uterus on exam and bimanual exam) Skin: warm Neurologic: AAOx3, sensation intact bilaterally, other (normal deep tendon reflexes) Psychiatric: interacting appropriately, not anxious, not encephalopathic Lab Data & Imaging Review 07/14/17 21:10 07/14/17 21:10 WBC 11.05 10^3/uL (3.80-9.50) H 07/14/17 21:10 RBC 4.33 10^6/uL (4.18-5.33) 07/14/17 21:10 Hgb 13.3 g/dL (12.6-16.3) 07/14/17 21:10 Hct 39.0 % (38.0-47.0) 07/14/17 21:10 MCV 90.1 fL (81.5-99.8) 07/14/17 21:10 MCH 30.7 pg (27.9-34.1) 07/14/17 21:10 MCHC 34.1 g/dL (32.4-36.7) 07/14/17 21:10 RDW 14.8 % (11.5-15.2) 07/14/17 21:10 Plt Count 276 10^3/uL (150-400) 07/14/17 21:10 MPV 11.3 fL (8.7-11.7) 07/14/17 21:10 Neut % (Auto) 72.1 % (39.3-74.2) 07/14/17 21:10 Lymph % (Auto) 16.7 % (15.0-45.0) 07/14/17 21:10 [place] % (Auto) 9.0 % (4.5-13.0) 07/14/17 21:10 Eos % (Auto) 0.9 % (0.6-7.6) 07/14/17 21:10 Baso % (Auto) 0.5 % (0.3-1.7) 07/14/17 21:10 Nucleat RBC Rel Count 0.0 % (0.0-0.2) 07/14/17 21:10 Absolute Neuts (auto) 7.98 10^3/uL (1.70-6.50) H 07/14/17 21:10 Absolute Lymphs (auto) 1.84 10^3/uL (1.00-3.00) 07/14/17 21:10 Absolute Monos (auto) 0.99 10^3/uL (0.30-0.80) H 07/14/17 21:10 Absolute Eos (auto) 0.10 10^3/uL (0.03-0.40) 07/14/17 21:10 Absolute Basos (auto) 0.05 10^3/uL (0.02-0.10) 07/14/17 21:10 Absolute Nucleated RBC 0.00 10^3/uL (0-0.01) 07/14/17 21:10 Immature Gran % 0.8 % (0.0-1.1) 07/14/17 21:10 Immature Gran # 0.09 10^3/uL (0.00-0.10) 07/14/17 21:10 BUN 9 mg/dL (7-23) 07/14/17 21:10 Creatinine 0.6 mg/dL (0.6-1.0) 07/14/17 21:10 Estimated GFR > 60 07/14/17 21:10 Uric Acid 4.8 mg/dL (2.5-6.8) 07/14/17 21:10 Total Bilirubin 0.2 mg/dL (0.1-1.4) 07/14/17 21:10 Conjugated Bilirubin 0.2 mg/dL (0.0-0.5) 07/14/17 21:10 Unconjugated Bilirubin 0.0 mg/dL (0.0-1.1) 07/14/17 21:10 AST 16 IU/L (14-46) 07/14/17 21:10 ALT 25 IU/L (9-52) 07/14/17 21:10 Lactate Dehydrogenase 596 IU/L (313-618) 07/14/17 21:10 Patient ABO/Rh O POSITIVE 07/14/17 21:10 Antibody Screen NEGATIVE 07/14/17 21:10 Urine dipstick: Protein 100 Assessment & Plan Assessment: 31-year-old @ 38.2 weeks with: 1. severe pre-eclampsia superimposed on chronic hypertension. 2. Morbid obesity. Plan: Admit for IOL and magnesium sulfate for seizure prophylaxis. Serial vitals and labs will be performed.
[2017-07-15] MEDS ORDERED: TERBUTALINE SULFATE 1 MG/ML VIAL ONE ×2 (01:41)
[2017-07-15] MEDS ORDERED: LIDOCAINE 1% 300 MG/30 ML SDV ONE ×2 (01:41)
[2017-07-15] MEDS ORDERED: AMMONIA AROMATIC 1 EACH AMP IH ONE ×2 (01:41)
[2017-07-15] MEDS ORDERED: OLIVE OIL 118 ML BTL ONE ×2 (01:41)
[2017-07-15] MEDS ORDERED: OXYTOCIN 10 UNIT/ML VIAL ONE ×2 (01:42)
[2017-07-15] MEDS ORDERED: MISOPROSTOL 200 MCG TAB ONE ×2 (01:42)
[2017-07-15] MEDS: MISOPROSTOL 100 MCG TAB PO SCH ×8 (01:43→18:49)
[2017-07-15] MEDS: ACETAMINOPHEN 325 MG TAB PO PRN ×8 (02:02→19:40)
[2017-07-15] MEDS: Mag Sulf 500 ML IV SCH ×2 (02:28)
[2017-07-15] MEDS ORDERED: LABETALOL HCL 5 MG/ML 20 ML MDV IVP ONE ×2 (08:51)
--- NOTE | 2017-07-15 09:09 | OBPROG ---
Labor Progress Note Assessment/Plan: Assessment: 31 yo @ 38.3 weeks gestation with severe preeclampsia. Plan: Continue cervical ripening with misoprstol 50 mg PO q 4 hrs. Continue seizure prophylaxis with Magnesium sulfate 2 grams/hour. Labetalol IV ordered for BPs (systolic > 160 or diastolic > 110). 07/15/17 09:06 Subjective/Intrapartum Course: 07/15/17 09:08 Patient is doing OK. She admits to occasional headache which is being treated with Tylenol. She denies RUQ pain. She reports contraction pain s/p Cytotec administration. She is feeling movement. Objective: 07/14/17 21:10 07/14/17 21:10 Patient ABO/Rh O POSITIVE 07/14/17 21:10 Uric Acid 4.8 mg/dL (2.5-6.8) 07/14/17 21:10 Total Bilirubin 0.2 mg/dL (0.1-1.4) 07/14/17 21:10 Conjugated Bilirubin 0.2 mg/dL (0.0-0.5) 07/14/17 21:10 Unconjugated Bilirubin 0.0 mg/dL (0.0-1.1) 07/14/17 21:10 AST 16 IU/L (14-46) 07/14/17 21:10 ALT 25 IU/L (9-52) 07/14/17 21:10 Lactate Dehydrogenase 596 IU/L (313-618) 07/14/17 21:10 NAD, AAOx3 HENT: normocephalic Lungs: Clear Heart: RRR Abdomen: obese, fundus difficult to palpate Pelvic/Cervical exam: 1 cm / thick / high posterior / vertex (vertex confirmed last evening with bedside US) Extremities: normal patellar DTRs, 1+ pitting edema - SVE Dilation (cm): 1 Effacement (%): Less than 50 Station: -3 Membranes: Intact - Contraction Pattern Assessment Current Contraction Pattern: Irregular - FHR Assessment Twin A FHR (bpm): 125 FHR Pattern Variability: Moderate FHR Category: 1 Oxytocin Orders Assessment - Pre-Induction/Augmentation Assessment Gestational Age: 38 week(s) and 2 day(s) ICD10 Worksheet Patient Problems: Problems Problem Status Onset Severe pre-eclampsia affecting second Acute - ICD10 Problem Qualifiers (1) Severe pre-eclampsia affecting second
--- NOTE | 2017-07-15 12:00 | OBPROG ---
Labor Progress Note Assessment/Plan: Assessment: 31 yo @ 38 3/7 weeks gestation with preeclampsia with severe features Plan: Cont cervical ripening at this time, s/p Cytotec x 2 Cont seizure prophylaxis with Magnesium sulfate 2 grams/hour Labetalol IV ordered for BPs (systolic > 160 or diastolic > 110); pt has received x 1 dose Will cont to closely monitor BPs Pt desires epidural FHTs - Cat I tracing 07/15/17 11:57 Subjective/Intrapartum Course: 07/15/17 09:08 Patient is doing OK. She admits to occasional headache which is being treated with Tylenol. She denies RUQ pain. She reports contraction pain s/p Cytotec administration. She is feeling movement. 07/15/17 12:00 Pt was sleeping, has no complaints. MAS has resolved. She denies any visual changes or RUQ pain. She is having some cramping with Cytotec. Good FM noted. Objective: 07/14/17 21:10 07/14/17 21:10 Patient ABO/Rh O POSITIVE 07/14/17 21:10 Uric Acid 4.8 mg/dL (2.5-6.8) 07/14/17 21:10 Total Bilirubin 0.2 mg/dL (0.1-1.4) 07/14/17 21:10 Conjugated Bilirubin 0.2 mg/dL (0.0-0.5) 07/14/17 21:10 Unconjugated Bilirubin 0.0 mg/dL (0.0-1.1) 07/14/17 21:10 AST 16 IU/L (14-46) 07/14/17 21:10 ALT 25 IU/L (9-52) 07/14/17 21:10 Lactate Dehydrogenase 596 IU/L (313-618) 07/14/17 21:10 Temp Pulse Resp BP Pulse Ox 68 189/87 H 07/15/17 09:31 07/15/17 09:31 - SVE Membranes: Intact - Contraction Pattern Assessment Current Contraction Pattern: Irregular - FHR Assessment [place] FHR (bpm): 140 FHR Pattern Variability: Moderate FHR Category: 1 - AP Antepartum Course: Preeclampsia with severe features; Increased BMI 07/15/17 12:02 - Physical Exam General Appearance: WD/WN, alert, no apparent distress Respiratory: lungs clear, normal breath sounds Cardiac/Chest: regular rate, rhythm Abdomen: non-tender, soft, other (obese, gravid) Extremities: non-tender, normal inspection DTR- Lower Extremities: Plantar (R): 1+, Plantar (L): 1+ Skin: normal color, warm/dry Neuro/Psych: alert, normal mood/affect, oriented x 3 Oxytocin Orders Assessment - Pre-Induction/Augmentation Assessment Gestational Age: 38 week(s) and 2 day(s) ICD10 Worksheet Patient Problems: Problems Problem Status Onset Severe pre-eclampsia affecting second Acute
--- NOTE | 2017-07-15 16:09 | OBPROG ---
Labor Progress Note Assessment/Plan: Assessment: 31 yo @ 38 3/7 weeks gestation with preeclampsia with severe features Plan: Pt is s/p Cytotec x 3 On SVE 1-; unable to AROM at this time Will give one last dose of Cytotec May have a snack Cont seizure prophylaxis with Mag sulfate 2 grams/hour BPs are stable 140/89-90s, will cont to closely monitor BPs FHTs - Cat I tracing 07/15/17 16:05 Subjective/Intrapartum Course: 07/15/17 09:08 Patient is doing OK. She admits to occasional headache which is being treated with Tylenol. She denies RUQ pain. She reports contraction pain s/p Cytotec administration. She is feeling movement. 07/15/17 12:00 Pt was sleeping, has no complaints. MAS has resolved. She denies any visual changes or RUQ pain. She is having some cramping with Cytotec. Good FM noted. 07/15/17 16:07 Pt states cramping 5/10. Good FM noted. Mild MAS-relief with Tylenol. Denies any visual changes or RUQ pain. Objective: 07/14/17 21:10 07/14/17 21:10 Patient ABO/Rh O POSITIVE 07/14/17 21:10 Uric Acid 4.8 mg/dL (2.5-6.8) 07/14/17 21:10 Total Bilirubin 0.2 mg/dL (0.1-1.4) 07/14/17 21:10 Conjugated Bilirubin 0.2 mg/dL (0.0-0.5) 07/14/17 21:10 Unconjugated Bilirubin 0.0 mg/dL (0.0-1.1) 07/14/17 21:10 AST 16 IU/L (14-46) 07/14/17 21:10 ALT 25 IU/L (9-52) 07/14/17 21:10 Lactate Dehydrogenase 596 IU/L (313-618) 07/14/17 21:10 Temp Pulse Resp BP Pulse Ox 68 189/87 H 07/15/17 09:31 07/15/17 09:31 - SVE Dilation (cm): 1 (1-2) Effacement (%): Less than 50 Station: -3 Membranes: Intact (unable to AROM) - Contraction Pattern Assessment Current Contraction Pattern: Irregular - FHR Assessment [place] FHR (bpm): 140 FHR Pattern Variability: Moderate FHR Category: 1 - AP Antepartum Course: Preeclampsia with severe features; Increased BMI 07/15/17 12:02 - Physical Exam General Appearance: WD/WN, alert, no apparent distress Respiratory: lungs clear, normal breath sounds Cardiac/Chest: regular rate, rhythm Abdomen: non-tender, soft, other (obese, gravid) Extremities: non-tender, normal inspection DTR- Lower Extremities: Plantar (R): 1+, Plantar (L): 1+ Skin: normal color, warm/dry Neuro/Psych: alert, normal mood/affect, oriented x 3 Oxytocin Orders Assessment - Pre-Induction/Augmentation Assessment Gestational Age: 38 week(s) and 2 day(s) ICD10 Worksheet Patient Problems: Problems Problem Status Onset Severe pre-eclampsia affecting second Acute
[2017-07-15] MEDS ORDERED: MISOPROSTOL 100 MCG TAB PO ONE ×2 (16:10)
--- NOTE | 2017-07-15 19:48 | OBPROG ---
Labor Progress Note Assessment/Plan: Assessment: 31 yo @ 38 3/7 weeks gestation with preeclampsia with severe features Plan: Pt is s/p Cytotec x 4 and is requesting an epidural SROM at 1838 - clear fluid noted Cont seizure prophylaxis with Mag sulfate 2 grams/hour BPs are elevated again at 160/80-90s, will cont to closely monitor BPs FHTs - Cat I tracing 07/15/17 19:39 Subjective/Intrapartum Course: 07/15/17 09:08 Patient is doing OK. She admits to occasional headache which is being treated with Tylenol. She denies RUQ pain. She reports contraction pain s/p Cytotec administration. She is feeling movement. 07/15/17 12:00 Pt was sleeping, has no complaints. MAS has resolved. She denies any visual changes or RUQ pain. She is having some cramping with Cytotec. Good FM noted. 07/15/17 16:07 Pt states cramping 5/10. Good FM noted. Mild MAS-relief with Tylenol. Denies any visual changes or RUQ pain. 07/15/17 19:48 Pt states pain is 7/10 and is requesting an epidural at this time. Objective: 07/14/17 21:10 07/14/17 21:10 Patient ABO/Rh O POSITIVE 07/14/17 21:10 Uric Acid 4.8 mg/dL (2.5-6.8) 07/14/17 21:10 Total Bilirubin 0.2 mg/dL (0.1-1.4) 07/14/17 21:10 Conjugated Bilirubin 0.2 mg/dL (0.0-0.5) 07/14/17 21:10 Unconjugated Bilirubin 0.0 mg/dL (0.0-1.1) 07/14/17 21:10 AST 16 IU/L (14-46) 07/14/17 21:10 ALT 25 IU/L (9-52) 07/14/17 21:10 Lactate Dehydrogenase 596 IU/L (313-618) 07/14/17 21:10 Temp Pulse Resp BP Pulse Ox 68 189/87 H 07/15/17 09:31 07/15/17 09:31 - SVE Dilation (cm): 3 (3-4) Effacement (%): 50 Station: -2 Membranes: SROM Amniotic Fluid Color: Clear - Contraction Pattern Assessment Current Contraction Pattern: Regular (3-4 min) - FHR Assessment [place] FHR (bpm): 140 FHR Pattern Variability: Moderate FHR Category: 1 - AP Antepartum Course: Preeclampsia with severe features; Increased BMI 07/15/17 12:02 Oxytocin Orders Assessment - Pre-Induction/Augmentation Assessment Gestational Age: 38 week(s) and 2 day(s) ICD10 Worksheet Patient Problems: Problems Problem Status Onset Severe pre-eclampsia affecting second Acute
[2017-07-15] MEDS ORDERED: fentaNYL 100 MCG/2 ML INJ ONE ×2 (20:01)
[2017-07-15] MEDS ORDERED: fentaNYL 2MCG/ML/BUP 0.1% RTU 100 ML BAG EP ONE ×2 (20:02)
[2017-07-15] MEDS ORDERED: BUPIVACAINE 0.25% 30 ML SDV ONE ×2 (20:02)
[2017-07-15] MEDS ORDERED: LR 500 ML IV PRN ×2 (21:26)
--- NOTE | 2017-07-15 21:26 | OBPROG ---
Labor Progress Note Assessment/Plan: Assessment: 31 yo @ 38 3/7 weeks gestation with preeclampsia with severe features Plan: Called in by RN regarding intermittent late decels, s/p epidural BPs stable, but after an epidural FHTs - Cat II tracing, resuscitation performed and now reassuring Will start Pitocin per protocol 07/15/17 21:28 Subjective/Intrapartum Course: 07/15/17 09:08 Patient is doing OK. She admits to occasional headache which is being treated with Tylenol. She denies RUQ pain. She reports contraction pain s/p Cytotec administration. She is feeling movement. 07/15/17 12:00 Pt was sleeping, has no complaints. MAS has resolved. She denies any visual changes or RUQ pain. She is having some cramping with Cytotec. Good FM noted. 07/15/17 16:07 Pt states cramping 5/10. Good FM noted. Mild MAS-relief with Tylenol. Denies any visual changes or RUQ pain. 07/15/17 19:48 Pt states pain is 7/10 and is requesting an epidural at this time. 07/15/17 21:29 Pt is comfortable, s/p epidural. Objective: 07/14/17 21:10 07/14/17 21:10 Patient ABO/Rh O POSITIVE 07/14/17 21:10 Uric Acid 4.8 mg/dL (2.5-6.8) 07/14/17 21:10 Total Bilirubin 0.2 mg/dL (0.1-1.4) 07/14/17 21:10 Conjugated Bilirubin 0.2 mg/dL (0.0-0.5) 07/14/17 21:10 Unconjugated Bilirubin 0.0 mg/dL (0.0-1.1) 07/14/17 21:10 AST 16 IU/L (14-46) 07/14/17 21:10 ALT 25 IU/L (9-52) 07/14/17 21:10 Lactate Dehydrogenase 596 IU/L (313-618) 07/14/17 21:10 Temp Pulse Resp BP Pulse Ox 68 189/87 H 07/15/17 09:31 07/15/17 09:31 - SVE Dilation (cm): 4 Effacement (%): 50 Station: -2 Membranes: SROM Amniotic Fluid Color: Clear - Contraction Pattern Assessment Current Contraction Pattern: Regular (3-4 min) - FHR Assessment [place] FHR (bpm): 140 FHR Pattern Variability: Moderate FHR Category: 2 (Intermittent late decels and variable decels with clyde to 90 bpm x 20-30 sec following epidural) - AP Antepartum Course: Preeclampsia with severe features; Increased BMI 07/15/17 12:02 Oxytocin Orders Assessment - Pre-Induction/Augmentation Assessment Indication: Preeclampsia with severe features Presentation: Vertex Gestational Age: 38 week(s) and 2 day(s) Gestational Age Determined By: Ultrasound, Last Menstral Period Estimated Weight: 2501-3400g Membrane Status: Ruptured Current Contraction Pattern: Irregular - Bennett's Score Dilation: 3-4cm Effacement: 40-50 Station: -2 Cervix: Soft Cervix Position: Posterior Bennett Score Total: 6 - Induction/Augmentation Consent Risks/Benefits of Procedure Reviewed/Pt Agrees to Proceed: Yes ICD10 Worksheet Patient Problems: Problems Problem Status Onset Severe pre-eclampsia affecting second Acute
--- NOTE | 2017-07-15 21:29 | PREANESOB ---
Obstetric Pre-Anesthesia Info - General Info Proposed Procedure: Labor and delivery. : 3 Para: 1 BRUNO: 07/26/17 Gestational Age: 38 week(s) and 2 day(s) - Info Status: Full Term Monitors: External FHR Pattern: Reassuring - Labor Status Cervical Dilation per last OB SVE: 3 (3-4) Station per last OB SVE: -2 Amniotic Fluid Color: Clear PIH: Moderate Magnesium Sulfate in Use: Yes Indications for Labor Analgesia: Induction of Labor, Pain Control Labor Epidural: Proposed Anesthesia ROS: Prior labor epidural. History of asthma. Allergies/Adverse Reactions: Allergy/AdvReac Type Severity Reaction Status Date / Time Bee Stings Allergy Severe Swelling/ne Uncoded 06/19/17 11:15 ck,face,thr oat Home Medications: Medication Instructions Recorded 12/01/16 Visit Medications: Generic Name Dose Route Start Last Admin Trade Name Freq PRN Reason Stop Dose Admin Acetaminophen 650 mg 07/15/17 01:41 07/15/17 19:40 Tylenol PO 01/11/18 01:40 650 mg Q4HRS PRN Administration Pain, Mild/Fever, Can Take PO Calcium Carbonate 500 - 1,000 mg 07/15/17 00:51 07/15/17 02:03 Tums PO 01/11/18 00:50 1,000 mg Q4 PRN Administration HEARTBURN Calcium Gluconate 1 gm 07/14/17 23:02 Calcium Gluconate IVP 01/10/18 23:01 PRN PRN Magnesium Toxicity Magnesium Sulfate 500 mls @ 50 mls/hr 07/14/17 23:15 07/15/17 02:28 Magnesium Sulfate 20 Gm/ 500 Ml (Premix) IV 01/10/18 23:14 500 mls CONT MACKENZIE Administration Lactated Ringer's 1,000 mls @ 0 mls/hr 07/14/17 23:08 07/15/17 02:29 Lr IV 01/10/18 23:07 1,000 mls PRN PRN Administration SEE PROTOCOL CONDITIONS Protocol Per Protocol Oxytocin 20 unit/ Lactated 1,002 mls @ 150 mls/hr 07/14/17 23:08 Ringer's IV PRN PRN Post- bleeding Ibuprofen 600 mg 07/14/17 23:08 Motrin PO 01/10/18 23:07 Q6HRS PRN post , inflammation Magnesium Sulfate 454 gm 07/14/17 23:08 Epsom Salt TP 01/10/18 23:07 Q1H PRN perineal discomfort Misoprostol 50 mcg 07/14/17 23:15 07/15/17 18:49 Cytotec PO 01/10/18 23:14 Not Given Q4H MACKENZIE [place] Oil 118 ml 07/14/17 23:08 Sweet Oil MISC 01/10/18 23:07 ONCE PRN perineal massage Terbutaline Sulfate 0.25 mg 07/14/17 23:08 Brethine IV 01/10/18 23:07 ONCE PRN Tachysystole Discontinued Medications Generic Name Dose Route Start Last Admin Trade Name Freq PRN Reason Stop Dose Admin Ammonia (Aromatic Spirit) Confirm 07/15/17 01:41 Ammonia Aromatic Administered 07/15/17 01:42 Dose 1 each IH .STK-MED ONE Bupivacaine HCl Confirm 07/15/17 20:02 Sensorcaine 0.25% Sdv Administered 07/15/17 20:03 Dose 30 ml .ROUTE .STK-MED ONE Fentanyl Confirm 07/15/17 20:01 Sublimaze Administered 07/15/17 20:02 Dose 100 mcg .ROUTE .STK-MED ONE Fentanyl/Bupivacaine HCl Confirm 07/15/17 20:02 Fentanyl/Bupivacaine/Ns 2 Mcg/Ml 0.1% (Premix Administered 07/15/17 20:03 Dose 100 ml EP .STK-MED ONE Magnesium Sulfate 100 mls @ 200 mls/hr 07/14/17 23:04 07/15/17 02:27 Magnesium Sulf 4 Gm (Premix) IV 07/14/17 23:33 100 mls ONCE ONE Administration Labetalol HCl 10 mg 07/15/17 08:51 07/15/17 09:31 Trandate Injection IVP 07/15/17 08:52 10 mg ONCE ONE Administration Lidocaine HCl Confirm 07/15/17 01:41 Lidocaine Hcl 1% Administered 07/15/17 01:42 Dose 300 mg .ROUTE .STK-MED ONE Misoprostol Confirm 07/15/17 01:42 Cytotec Administered 07/15/17 01:43 Dose 800 mcg .ROUTE .STK-MED ONE Misoprostol 100 mcg 07/15/17 16:10 07/15/17 16:18 Cytotec PO 07/15/17 16:11 100 mcg QID ONE Administration [place] Oil Confirm 07/15/17 01:41 Sweet Oil Administered 07/15/17 01:42 Dose 118 ml .ROUTE .STK-MED ONE Oxytocin Confirm 07/15/17 01:42 Pitocin Administered 07/15/17 01:43 Dose 40 unit .ROUTE .STK-MED ONE Terbutaline Sulfate Confirm 07/15/17 01:41 Brethine Administered 07/15/17 01:42 Dose 1 mg .ROUTE .STK-MED ONE - Anesthesia History Response to Local Anesthetics: Normal Anesthesia & Operative History: No Prior Problems Family Anesthesia History: Negative - Social History Substance Use/Abuse: Denies - Vital Signs Latest Vital Signs (Nursing): Temp Pulse Resp BP Pulse Ox 68 189/87 H 07/15/17 09:31 07/15/17 09:31 Blood Pressure: 141/67 Heart Rate: 80 Height/Weight (Nursing): Height 162.56 cm Weight 129.274 kg - Focused Exam Neck exam: FROM Mallampati Score: Class 3 Mouth exam: normal dental/mouth exam, small mouth opening Pulmonary: no respiratory distress Cardiovascular: regular rate and rhythym Labs: 07/14/17 21:10 07/14/17 21:10 Patient ABO/Rh O POSITIVE 07/14/17 21:10 Uric Acid 4.8 mg/dL (2.5-6.8) 07/14/17 21:10 Total Bilirubin 0.2 mg/dL (0.1-1.4) 07/14/17 21:10 Conjugated Bilirubin 0.2 mg/dL (0.0-0.5) 07/14/17 21:10 Unconjugated Bilirubin 0.0 mg/dL (0.0-1.1) 07/14/17 21:10 AST 16 IU/L (14-46) 07/14/17 21:10 ALT 25 IU/L (9-52) 07/14/17 21:10 Lactate Dehydrogenase 596 IU/L (313-618) 07/14/17 21:10 - Plan Anesthetic Plan: EDGAR Consent Signed and on Chart: Yes Patient/Guardian Understands and Agrees to Plan: Yes Urgent/Emergent Case: Asim griffith completed preop but documented later for safe timely pt care
[2017-07-15] MEDS ORDERED: OXYTOCIN 30 UNIT in LR 500 ML IV SCH (21:30)
[2017-07-15] MEDS ORDERED: ONDANSETRON 4 MG/2 ML VIAL IVP PRN ×2 (21:32)
[2017-07-15] MEDS ORDERED: PHENYLEPHRINE HCL 100 MCG/ML SYR IVP PRN ×2 (21:32)
[2017-07-15] MEDS ORDERED: METOCLOPRAMIDE 10 MG/2 ML VIAL IVP PRN ×2 (21:32)
--- NOTE | 2017-07-15 21:32 | POSTANESTH ---
Post Anesthetic Evaluation Cardiovascular Status: Normal, Stable Respiratory Status: Normal, Stable Level of Consciousness/Mental Status: Can Participate in Eval Pain Control: Adequate, Prn Tx Ordered Nausea/Vomiting Control: Adequate, Prn Tx Ordered Complications Possibly Related to Anesthesia: None Noted (Post epidural blood pressure lower but stable after phenylephrine and fluid bolus.)
[2017-07-15] MEDS ORDERED: fentaNYL 2MCG/ML/BUP 0.1% RTU 100 ML EP SCH ×2 (22:00)
[2017-07-15] MEDS ORDERED: LR 500 ML IV SCH ×2 (22:00)
[2017-07-15] MEDS ORDERED: OXYTOCIN 10 UNIT/ML VIAL IV ONE ×2 (22:06)
[2017-07-16] MEDS: Mag Sulf 500 ML IV SCH ×6 (00:30→21:18)
[2017-07-16] MEDS: ACETAMINOPHEN 325 MG TAB PO PRN ×4 (02:38→08:10)
[2017-07-16] MEDS ORDERED: HYDROCODONE/APAP 5/325 TAB PO PRN ×2 (05:57)
[2017-07-16] MEDS ORDERED: HYDROCORTISONE 0.5% CREAM TP PRN ×2 (05:57)
[2017-07-16] MEDS ORDERED: SIMETHICONE 80 MG TAB CHEW PO PRN ×2 (05:57)
--- NOTE | 2017-07-16 06:16 | OBDEL ---
Info Type: Vaginal Presentation at Delivery: Vertex L&D Analgesia/Anesthesia Type: Epidural GBS+: No Intrapartum Medications: Generic Name Dose Route Start Last Admin Trade Name Javier PRN Reason Stop Dose Admin Acetaminophen 650 mg 07/15/17 01:41 07/16/17 02:38 Tylenol PO 01/11/18 01:40 650 mg Q4HRS PRN Administration Pain, Mild/Fever, Can Take PO Calcium Carbonate 500 - 1,000 mg 07/15/17 00:51 07/15/17 02:03 Tums PO 01/11/18 00:50 1,000 mg Q4 PRN Administration HEARTBURN Magnesium Sulfate 500 mls @ 50 mls/hr 07/14/17 23:15 07/16/17 00:30 Magnesium Sulfate 20 Gm/ 500 Ml (Premix) IV 01/10/18 23:14 500 mls CONT MACKENZIE Administration Lactated Ringer's 1,000 mls @ 0 mls/hr 07/14/17 23:08 07/15/17 02:29 Lr IV 01/10/18 23:07 1,000 mls PRN PRN Administration SEE PROTOCOL CONDITIONS Protocol Per Protocol Oxytocin 30 unit/ Lactated 503 mls @ 0 mls/hr 07/15/17 21:30 07/15/17 22:14 Ringer's IV 01/11/18 21:29 503 mls CONT MACKENZIE Administration Protocol Per Protocol Misoprostol 50 mcg 07/14/17 23:15 07/15/17 18:49 Cytotec PO 01/10/18 23:14 Not Given Q4H MACKENZIE Ondansetron HCl 4 mg 07/15/17 21:32 07/16/17 04:59 Zofran IVP 07/16/17 21:31 4 mg Q4HRS PRN Administration Nausea/Vomiting, Can't Take PO Discontinued Medications Generic Name Dose Route Start Last Admin Trade Name Javier PRN Reason Stop Dose Admin Magnesium Sulfate 100 mls @ 200 mls/hr 07/14/17 23:04 07/15/17 02:27 Magnesium Sulf 4 Gm (Premix) IV 07/14/17 23:33 100 mls ONCE ONE Administration Labetalol HCl 10 mg 07/15/17 08:51 07/15/17 09:31 Trandate Injection IVP 07/15/17 08:52 10 mg ONCE ONE Administration Misoprostol 100 mcg 07/15/17 16:10 07/15/17 16:18 Cytotec PO 07/15/17 16:11 100 mcg QID ONE Administration - Infant Care Provider Psychology Physician/PLASTICS FABRICATOR AND ASSEMBLER: Arcenio [facility] - Hospital Course Intrapartum: 07/15/17 09:08 Patient is doing OK. She admits to occasional headache which is being treated with Tylenol. She denies RUQ pain. She reports contraction pain s/p Cytotec administration. She is feeling movement. 07/15/17 12:00 Pt was sleeping, has no complaints. MAS has resolved. She denies any visual changes or RUQ pain. She is having some cramping with Cytotec. Good FM noted. 07/15/17 16:07 Pt states cramping 5/10. Good FM noted. Mild MAS-relief with Tylenol. Denies any visual changes or RUQ pain. 07/15/17 19:48 Pt states pain is 7/10 and is requesting an epidural at this time. 07/15/17 21:29 Pt is comfortable, s/p epidural. Indications for Delivery: Preeclampsia Severe Vaginal Delivery - Delivery Provider Delivery Physician/CNM: Caroline Navarro - Labor and Delivery Onset of Contractions Date: 07/14/17 Onset of Contractions Time: 18:00 Onset of Contractions Type: Induced Rupture of Membranes Date: 07/15/17 Rupture of Membranes Time: 18:38 Rupture of Membranes Type: Spontaneous Amniotic Fluid Color: Clear Dilation Complete Date: 07/16/17 Dilation Complete Time: 02:18 Placenta Delivery Date: 07/16/17 Placenta Delivery Time: 05:39 Total Hours of Labor: 35 Laceration: Other (Specify) (Midline vaginal lac) Repair: 3-0, Vicryl Vaginal Sponge Count Correct: Yes Vaginal Needle Count Correct: Yes Vaginal Sweep Performed: Yes EBL: 350 cc Delivery Events: Nuchal Cord (Tight - clamped and cut on perineum) Delivery Comment: No complications Cord Gases: Cord Gases Cord Blood PCO2 49.1 mmHg (37-60) 07/16/17 05:42 Cord Base Excess -8.1 mEq/L (-13.6--3.2) 07/16/17 05:42 Cord ABG pH 7.23 (7.10-7.37) 07/16/17 05:42 Cord VBG pH 7.26 (7.20-7.42) 07/16/17 05:42 - Medications Labor Augmentation/Induction Methods Used: Pitocin, Misoprostol Labor Augmentation/Induction Indication: Other (Specify) (Severe preeclampsia) Operative Report - Delivery Cord Gases: Cord Gases Cord Blood PCO2 49.1 mmHg (37-60) 07/16/17 05:42 Cord Base Excess -8.1 mEq/L (-13.6--3.2) 07/16/17 05:42 Cord ABG pH 7.23 (7.10-7.37) 07/16/17 05:42 Cord VBG pH 7.26 (7.20-7.42) 07/16/17 05:42 Data [place] Delivery Date: 07/16/17 Delivery Time: 05:35 BRUNO: 07/26/17 Gestational Age: 38 week(s) and 4 day(s) Sex of : Male Score (1 Min): 2 Score (5 Min): 8 ICD10 Worksheet Patient Problems: Problems Problem Status Onset Severe pre-eclampsia affecting second Acute Status post vaginal delivery Acute - ICD10 Problem Qualifiers (1) Status post vaginal delivery
[2017-07-16] MEDS: MISOPROSTOL 100 MCG TAB PO SCH ×2 (08:04)
[2017-07-16] MEDS: IBUPROFEN 600 MG TAB PO PRN ×6 (08:09→21:08)
--- NOTE | 2017-07-16 18:09 | OBPP ---
Progress Note Assessment/Plan: Assessment: 31 yo @ 38.3 weeks gestation with severe preeclampsia. Plan: Continue cervical ripening with misoprstol 50 mg PO q 4 hrs. Continue seizure prophylaxis with Magnesium sulfate 2 grams/hour. Labetalol IV ordered for BPs (systolic > 160 or diastolic > 110). 07/15/17 09:06 07/16/17 18:06 Assessment: 31-year-old white female PPD#0 s/p following IOL for preeclampsia with severe features (diagnosed at 38.3 weeks gestation). Doing well on 24 hour post- IV magnesium sulfate (for seizure prophylaxis). Plan: 1. Routine post- care. 2. Preeclampsia: continue IV magnesium sulfate seizure prophylaxis for 24 hours PP, monitor BPs closely, monitor for signs/sx of magnesium toxicity, DC magnesium at 5AM 07/17/17. Subjective/ Course: 07/16/17 18:09 Denaa is resting in bed. She feels OK. She denies shortness of breath, difficulty breathing. She denies headache, vision changes, right-upper quadrant pain. She reports minimal lochia. She reports some pelvic pain and discomfort from indwelling Junior catheter. Objective: 07/14/17 21:10 07/14/17 21:10 Patient ABO/Rh O POSITIVE 07/14/17 21:10 Uric Acid 4.8 mg/dL (2.5-6.8) 07/14/17 21:10 Total Bilirubin 0.2 mg/dL (0.1-1.4) 07/14/17 21:10 Conjugated Bilirubin 0.2 mg/dL (0.0-0.5) 07/14/17 21:10 Unconjugated Bilirubin 0.0 mg/dL (0.0-1.1) 07/14/17 21:10 AST 16 IU/L (14-46) 07/14/17 21:10 ALT 25 IU/L (9-52) 07/14/17 21:10 Lactate Dehydrogenase 596 IU/L (313-618) 07/14/17 21:10 Temp Pulse Resp BP Pulse Ox 80 141/67 H 07/15/17 21:30 07/15/17 21:30 Physical Exam - Physical Exam EENT: PERRL/EOMI, normal ENT inspection Neck: non-tender, supple Respiratory: chest non-tender, lungs clear, normal breath sounds Cardiac/Chest: normal peripheral pulses, regular rate, rhythm Abdomen: normal bowel sounds, other (fundus firm, below umbilicus) Extremities: normal range of motion, normal inspection Skin: normal color, warm/dry, other (1+ pitting pretibial (bilateral) edema) Neuro/Psych: alert, normal mood/affect, oriented x 3, other (1+ DTRs (patellar tendons, bilateral))
[2017-07-17] MEDS: DOCUSATE SODIUM 100 MG CAP PO PRN ×4 (02:20→20:01)
[2017-07-17] MEDS: IBUPROFEN 600 MG TAB PO PRN ×6 (04:47→20:01)
[2017-07-17 06:35] LABS: PLATELET COUNT 213 10^3/uL (150-400)
--- NOTE | 2017-07-17 12:15 | OBPP ---
Progress Note Assessment/Plan: Assessment: 31yo s/p PPD#1 Pre E with severe features, s/p magnesium sulfate obesity bottlefeeding Plan: Routine PP care nutrition/diet consult monitor BP's encourage ambulation anticipate d/c home in 24-48hrs 07/17/17 12:15 07/17/17 12:15 Subjective/ Course: 07/16/17 18:09 Deana is resting in bed. She feels OK. She denies shortness of breath, difficulty breathing. She denies headache, vision changes, right-upper quadrant pain. She reports minimal lochia. She reports some pelvic pain and discomfort from indwelling Junior catheter. 07/17/17 12:17 Pt doing well, she denies any headaches, visual changes, epigastric pain; She reports moderate bleeding, denies any pain. She is bottlefeeding. Objective: 07/17/17 06:11 07/17/17 06:11 Patient ABO/Rh O POSITIVE 07/14/17 21:10 Uric Acid 6.0 mg/dL (2.5-6.8) 07/17/17 06:11 Total Bilirubin 0.1 mg/dL (0.1-1.4) 07/17/17 06:11 Conjugated Bilirubin 0.0 mg/dL (0.0-0.5) 07/17/17 06:11 Unconjugated Bilirubin 0.1 mg/dL (0.0-1.1) 07/17/17 06:11 AST 12 IU/L (14-46) L 07/17/17 06:11 ALT 21 IU/L (9-52) 07/17/17 06:11 Lactate Dehydrogenase 418 IU/L (313-618) 07/17/17 06:11 Temp Pulse Resp BP Pulse Ox 36.7 C 78 20 136/81 H 96 07/17/17 10:00 07/17/17 10:00 07/17/17 10:00 07/17/17 10:00 07/17/17 10:00 Uterine Position/Fundal Height: Umbilicus -1, Midline Uterine Tone: Firm Physical Exam - Physical Exam EENT: PERRL/EOMI Neck: supple Respiratory: lungs clear, normal breath sounds Cardiac/Chest: regular rate, rhythm Abdomen: non-tender (- obese), soft Extremities: non-tender, pedal edema Skin: normal color, warm/dry Neuro/Psych: alert, normal mood/affect, oriented x 3
[2017-07-18] MEDS: IBUPROFEN 600 MG TAB PO PRN ×4 (05:23→12:02)
[2017-07-18 10:39] VITALS: BP 130/72; PULSE 82; RESP 20; TEMP 97.5; O2SAT 98
--- NOTE | 2017-07-18 11:54 | OBPP ---
Progress Note Assessment/Plan: Assessment: 31 yo @ 38.3 weeks gestation with severe preeclampsia. Plan: Continue cervical ripening with misoprstol 50 mg PO q 4 hrs. Continue seizure prophylaxis with Magnesium sulfate 2 grams/hour. Labetalol IV ordered for BPs (systolic > 160 or diastolic > 110). 07/15/17 09:06 07/16/17 18:06 Assessment: 31-year-old white female PPD#0 s/p following IOL for preeclampsia with severe features (diagnosed at 38.3 weeks gestation). Doing well on 24 hour post- IV magnesium sulfate (for seizure prophylaxis). Plan: 1. Routine post- care. 2. Preeclampsia: continue IV magnesium sulfate seizure prophylaxis for 24 hours PP, monitor BPs closely, monitor for signs/sx of magnesium toxicity, DC magnesium at 5AM 07/17/17. 07/18/17 11:49 A/P: 31-year-old PPD#2 s/p following IOL for preeclampsia with severe features at 38 weeks. She is also s/p 24 hours of IV magnesium sulfate for PP seizure prophylaxis. She has been normotensive without antihypertensive meds since discontinuation of magnesium sulfate. She is ready for DC home today. Subjective/ Course: 07/16/17 18:09 Deana is resting in bed. She feels OK. She denies shortness of breath, difficulty breathing. She denies headache, vision changes, right-upper quadrant pain. She reports minimal lochia. She reports some pelvic pain and discomfort from indwelling Junior catheter. 07/17/17 12:17 Pt doing well, she denies any headaches, visual changes, epigastric pain; She reports moderate bleeding, denies any pain. She is bottlefeeding. 07/18/17 11:51 Patient is doing very well. She denies PreE symptoms. She reports no pain. She is bottle feeding and denies breast engorgement. She reports minimal lochia. She reports good BM/spontaneous flatus, and no problems with voiding since removal of Junior catheter. She desires DC home today. Male is s/p circumcision and doing well. Objective: 07/17/17 06:11 07/17/17 06:11 Patient ABO/Rh O POSITIVE 07/14/17 21:10 Uric Acid 6.0 mg/dL (2.5-6.8) 07/17/17 06:11 Total Bilirubin 0.1 mg/dL (0.1-1.4) 07/17/17 06:11 Conjugated Bilirubin 0.0 mg/dL (0.0-0.5) 07/17/17 06:11 Unconjugated Bilirubin 0.1 mg/dL (0.0-1.1) 07/17/17 06:11 AST 12 IU/L (14-46) L 07/17/17 06:11 ALT 21 IU/L (9-52) 07/17/17 06:11 Lactate Dehydrogenase 418 IU/L (313-618) 07/17/17 06:11 Temp Pulse Resp BP Pulse Ox 36.4 C 82 20 130/72 H 98 07/18/17 10:00 07/18/17 10:00 07/18/17 10:00 07/18/17 10:00 07/18/17 10:00 Uterine Position/Fundal Height: Umbilicus -2 Uterine Tone: Firm Physical Exam - Physical Exam EENT: PERRL/EOMI Neck: non-tender, supple Respiratory: chest non-tender, lungs clear, normal breath sounds Cardiac/Chest: regular rate, rhythm Abdomen: normal bowel sounds, non-tender, soft Extremities: non-tender, normal inspection Skin: normal color, warm/dry Neuro/Psych: no motor/sensory deficits, alert, normal mood/affect, oriented x 3
--- NOTE | 2017-07-18 11:56 | OBGCSDC ---
General Delivery Information - General Info : 3 Para: 2 Abortions: 1 Type: Vaginal L&D Analgesia/Anesthesia Type: Epidural Admission Date: 07/14/17 Labs: Patient ABO/Rh O POSITIVE 07/14/17 21:10 Hct 30.9 % (38.0-47.0) L 07/17/17 06:11 - Hospital Course Antepartum: Preeclampsia with severe features; Increased BMI 07/15/17 12:02 Intrapartum: 07/15/17 09:08 Patient is doing OK. She admits to occasional headache which is being treated with Tylenol. She denies RUQ pain. She reports contraction pain s/p Cytotec administration. She is feeling movement. 07/15/17 12:00 Pt was sleeping, has no complaints. MAS has resolved. She denies any visual changes or RUQ pain. She is having some cramping with Cytotec. Good FM noted. 07/15/17 16:07 Pt states cramping 5/10. Good FM noted. Mild MAS-relief with Tylenol. Denies any visual changes or RUQ pain. 07/15/17 19:48 Pt states pain is 7/10 and is requesting an epidural at this time. 07/15/17 21:29 Pt is comfortable, s/p epidural. : 07/16/17 18:09 Deana is resting in bed. She feels OK. She denies shortness of breath, difficulty breathing. She denies headache, vision changes, right-upper quadrant pain. She reports minimal lochia. She reports some pelvic pain and discomfort from indwelling Junior catheter. 07/17/17 12:17 Pt doing well, she denies any headaches, visual changes, epigastric pain; She reports moderate bleeding, denies any pain. She is bottlefeeding. 07/18/17 11:51 Patient is doing very well. She denies PreE symptoms. She reports no pain. She is bottle feeding and denies breast engorgement. She reports minimal lochia. She reports good BM/spontaneous flatus, and no problems with voiding since removal of Junior catheter. She desires DC home today. Male infant is s/p circumcision and doing well. Vaginal - Delivery Provider Delivery Physician/CNM: Caroline Navarro - Diagnosis Labor: Induced Rupture of Membranes Type: Spontaneous Amniotic Fluid Color: Clear Laceration: Other (Specify) (Midline vaginal lac) Repair: 3-0, Vicryl Delivery Events: Nuchal Cord (Tight - clamped and cut on perineum) - Delivery EBL: 350 cc [place] Data [place] Delivery Date: 07/16/17 Delivery Time: 05:34 BRUNO: 07/26/17 Gestational Age: 38 week(s) and 6 day(s) Sex of Infant: Male [place] Weight (gm): 3778 g Score (1 Min): 2 Score (5 Min): 8 Discharge Information - Discharge Information Condition: Good Instruction/Follow Up: One Week (PP BP check.)
[2017-07-18] MEDS: DOCUSATE SODIUM 100 MG CAP PO PRN ×2 (12:04)
== END 2017-07-18 14:30 | disposition home or self-care (01) | DRG 775 ==
LOC: FLD 20:08 → OBSVTOIN 20:08 → FOB 07-17 09:50
PROVIDERS: ADMIT Obstetrics & Gynecology Gynecology; ATTEND Obstetrics & Gynecology Gynecology
PROC: 0KQM0ZZ Repair Perineum Muscle, Open Approach (ICD-10-PCS; principal; 2017-07-14)
PROC: 10E0XZZ Delivery of Products of Conception, External Approach (ICD-10-PCS; principal; 2017-07-14)
PROC: 3E033VJ Introduction of Other Hormone into Peripheral Vein, Percutaneous Approach (ICD-10-PCS; principal; 2017-07-14)
DX: O14.14 Severe pre-eclampsia complicating childbirth (principal); Z37.0 Single live birth; O69.2XX0 Labor and delivery complicated by other cord entanglement, with compression, not applicable or unspecified; Z3A.38 38 weeks gestation of pregnancy; O99.214 Obesity complicating childbirth; E66.09 Other obesity due to excess calories; O70.1 Second degree perineal laceration during delivery
CPT/HCPCS: J0610; J2405; J3010; J3105; J3475; J3490

== ENCOUNTER 2017-07-20 09:48 | Emergency (ER) | payer MEDICAID ==
[2017-07-20 09:56] VITALS: TEMP 98.2
--- NOTE | 2017-07-20 11:14 | EDPHY ---
H & P Time Seen by Provider: 07/20/17 10:55 HPI/ROS: CHIEF COMPLAINT: Bilateral leg swelling HISTORY OF PRESENT ILLNESS: Patient had preeclampsia and was induced at 39 weeks and delivered on July 16. She presents with bilateral leg swelling for the last 24 hours. Symptoms moderate and clearly bilateral and not associated with chest pain or shortness of breath. Denies abdominal pain headache or blurry vision. REVIEW OF SYSTEMS: Eye: no change in vision ENT: no sore throat Cardiac: no chest pain or syncope Pulmonary: no cough or SOB Abdomen: no vomiting, diarrhea, abdominal pain Musculoskeletal: HPI Skin: no rash Neuro: no headache Constitutional: no fever : no urinary symptoms A comprehensive 10 point review of systems is otherwise negative aside from elements mentioned in the history of present illness. PAST MEDICAL HISTORY: As above Social history: Nonsmoker General Appearance: Alert and conversant, cooperative. Eyes: No scleral icterus. ENT, Mouth: Normal mucous membranes. Respiratory: Normal respiratory effort, breath sounds equal, lungs are clear to auscultation. Cardiovascular: Regular rate and rhythm. Gastrointestinal: Abdomen is soft and non tender. Nontender over the liver. Neurological: Alert and oriented x3. Normally conversant. Face symmetric, normal movement and sensation in all extremities. Skin: Warm and dry, no rashes. Musculoskeletal: 1+ bilateral pedal edema, nonpitting. No calf tenderness. Compartments are soft. Psychiatric: Not agitated. Emergency Department course/MDM: Initial blood pressure 149/82, repeated is 124/88. Plan for PIH labs and urinalysis, will discuss with Dr. Navarro her OBGYN. 1224: Krystle Navarro, discussed presentation and workup, she recommends the patient is okay for discharge. I think it would be unlikely for bilateral leg swelling to represent DVT. Smoking Status: Former smoker Constitutional: Initial Vital Signs Temperature (C) 36.8 C 07/20/17 09:52 Heart Rate 84 07/20/17 09:52 Respiratory Rate 18 07/20/17 09:52 Blood Pressure 149/82 H 07/20/17 09:52 O2 Sat (%) 96 07/20/17 09:52 O2 Delivery Mode Room Air Allergies/Adverse Reactions: Bee Stings Allergy (Severe, Uncoded 07/20/17 09:52) Swelling/neck,face,throat Home Medications: Medication Instructions Recorded NK [No Known Home Meds] 07/20/17 Medical Decision Making Differential Diagnosis: Differential considered including but not limited to eclampsia, preeclampsia, DVT, CHF, renal failure. - Data Points Laboratory Results: Laboratory Results 07/20/17 11:33 07/20/17 11:33 07/20/17 07/20/17 07/20/17 11:33 11:33 11:14 WBC 9.83 10^3/uL H 10^3/uL (3.80-9.50) RBC 3.53 10^6/uL L 10^6/uL (4.18-5.33) Hgb 10.7 g/dL L g/dL (12.6-16.3) Hct 32.7 % L % (38.0-47.0) MCV 92.6 fL fL (81.5-99.8) MCH 30.3 pg pg (27.9-34.1) MCHC 32.7 g/dL g/dL (32.4-36.7) RDW 15.1 % % (11.5-15.2) Plt Count 232 10^3/uL 10^3/uL (150-400) MPV 10.5 fL fL (8.7-11.7) Neut % (Auto) 73.8 % % (39.3-74.2) Lymph % (Auto) 14.0 % L % (15.0-45.0) [place] % (Auto) 7.8 % % (4.5-13.0) Eos % (Auto) 2.6 % % (0.6-7.6) Baso % (Auto) 0.3 % % (0.3-1.7) Nucleat RBC Rel Count 0.0 % % (0.0-0.2) Absolute Neuts (auto) 7.24 10^3/uL H 10^3/uL (1.70-6.50) Absolute Lymphs (auto) 1.38 10^3/uL 10^3/uL (1.00-3.00) Absolute Monos (auto) 0.77 10^3/uL 10^3/uL (0.30-0.80) Absolute Eos (auto) 0.26 10^3/uL 10^3/uL (0.03-0.40) Absolute Basos (auto) 0.03 10^3/uL 10^3/uL (0.02-0.10) Absolute Nucleated RBC 0.00 10^3/uL 10^3/uL (0-0.01) Immature Gran % 1.5 % H % (0.0-1.1) Immature Gran # 0.15 10^3/uL H 10^3/uL (0.00-0.10) BUN 18 mg/dL mg/dL (7-23) Creatinine 0.8 mg/dL mg/dL (0.6-1.0) Estimated GFR > 60 Uric Acid 4.7 mg/dL mg/dL (2.5-6.8) Total Bilirubin 0.2 mg/dL mg/dL (0.1-1.4) Conjugated Bilirubin 0.0 mg/dL mg/dL (0.0-0.5) Unconjugated Bilirubin 0.2 mg/dL mg/dL (0.0-1.1) AST 30 IU/L IU/L (14-46) ALT 51 IU/L IU/L (9-52) Lactate Dehydrogenase 572 IU/L IU/L (313-618) Urine Color YELLOW Urine Appearance HAZY Urine pH 6.0 (5.0-7.5) Ur Specific [place] 1.018 (1.002-1.030) Urine Protein NEGATIVE (NEGATIVE) Urine Ketones NEGATIVE (NEGATIVE) Urine Blood 3+ H (NEGATIVE) Urine Nitrate NEGATIVE (NEGATIVE) Urine Bilirubin NEGATIVE (NEGATIVE) Urine Urobilinogen NEGATIVE EU EU (0.2-1.0) Ur Leukocyte Esterase 1+ H (NEGATIVE) Urine RBC 50-182 /hpf H /hpf (0-3) Urine WBC 25-50 /hpf H /hpf (0-3) Ur Epithelial Cells TRACE /lpf /lpf (NONE-1+) Urine Bacteria TRACE /hpf H /hpf (NONE SEEN) Urine Mucus TRACE /lpf /lpf (NONE-1+) Urine Glucose NEGATIVE (NEGATIVE) Departure - Departure Disposition: Home, Routine, Self-Care Clinical Impression: Leg edema Condition: Good Instructions: Leg Edema (ED) Referrals: Caroline Navarro DO [Primary Care Provider] - As per Instructions
[2017-07-20 11:23] LABS: COLOR YELLOW; LEUKOCYTE ESTERASE,URINE 1+ (NEGATIVE); NITRITE,URINE NEGATIVE (NEGATIVE)
[2017-07-20 11:27] LABS: BACTERIA TRACE /hpf (NONE SEEN); MUCUS TRACE /lpf (NONE-1+); RBC,URINE 50-182 /hpf (0-3); WBC,URINE 25-50 /hpf (0-3)
[2017-07-20 11:44] LABS: % IMMATURE GRANULYOCYTES 1.5 % (0.0-1.1); ABSOLUTE IMMATURE GRANULOCYTES 0.15 10^3/uL (0.00-0.10); ADD DIFF? NO; ADD MORPH? NO; ADD SCAN? NO; ATYPICAL LYMPHOCYTE FLAG 0 (0-99); FRAGMENT RBC FLAG 0 (0-99); HEMATOCRIT 32.7 % (38.0-47.0); HEMOGLOBIN 10.7 g/dL (12.6-16.3); LEFT SHIFT FLG 10 (0-99); LIPEMIA HEMOLYSIS FLAG 80 (0-99); MEAN CELL HEMOGLOBIN 30.3 pg (27.9-34.1); MEAN CELL HEMOGLOBIN CONCENTR. 32.7 g/dL (32.4-36.7); MEAN CELL VOLUME 92.6 fL (81.5-99.8); MEAN PLATELET VOLUME 10.5 fL (8.7-11.7); PLATELET CLUMPS FLAG 0 (0-99); PLATELET COUNT 232 10^3/uL (150-400); RED BLOOD CELL COUNT 3.53 10^6/uL (4.18-5.33); RED CELL DISTRIBUTION WIDTH 15.1 % (11.5-15.2)
[2017-07-20 11:56] LABS: ALANINE AMINOTRANSFERASE 51 IU/L (9-52); ASPARTATE AMINOTRANSFERASE 30 IU/L (14-46); BILIRUBIN,TOTAL 0.2 mg/dL (0.1-1.4); BILIRUBIN-UNCONJUGATED 0.2 mg/dL (0.0-1.1); CREATININE 0.8 mg/dL (0.6-1.0); GLOMERULAR FILTRATION RATE > 60; LACTATE DEHYDROGENASE 572 IU/L (313-618); URIC ACID 4.7 mg/dL (2.5-6.8)
[2017-07-20 12:49] VITALS: BP 152/87; PULSE 78; RESP 16; O2SAT 100
== END 2017-07-20 12:48 | disposition home or self-care (01) ==
DX: R60.0 Localized edema (principal); Z87.891 Personal history of nicotine dependence

== ENCOUNTER 2019-02-07 09:50 | Emergency (ER) | payer MEDICAID ==
[2019-02-07] MEDS ORDERED: NS 1,000 ML IV ONE (10:50)
--- NOTE | 2019-02-07 10:57 | EDPHY ---
H & P Stated Complaint: n/v, dizzy - Personal History Current Tetanus/Diphtheria Vaccine: Yes Current Tetanus Diphtheria and Acellular Pertussis (TDAP): Yes - Medical/Surgical History Hx Asthma: Yes Hx Chronic Respiratory Disease: No Hx Diabetes: No Hx Cardiac Disease: No Hx Renal Disease: No Hx Cirrhosis: No Hx Alcoholism: No Hx HIV/AIDS: No Hx Splenectomy or Spleen Trauma: No Other PMH: asthma/preeclampsia, - Social History Smoking Status: Former smoker Time Seen by Provider: 02/07/19 10:22 HPI/ROS: CHIEF COMPLAINT: Nausea, vomiting since 5:00 a.m. HISTORY OF PRESENT ILLNESS: 33-year-old female awoke at 5:00 a.m. complaining of intractable nausea, vomiting. No abdominal pain. No headache. No chest pain. Passing bowel movements and gas as normal. No fever no chills. No trauma. No untreated water sources. No recent antibiotic use. No international travel. No back or flank pain. No urinary abnormality. PRIMARY CARE PROVIDER: REVIEW OF SYSTEMS: 10 systems reviewed and negative with the exception of the elements mentioned in the history of present illness PAST MEDICAL & SURGICAL HISTORY: No pertinent medical or surgical history SOCIAL HISTORY: Nonsmoker. PHYSICAL EXAM (Prior to examination, patient consented to physical exam, hands were washed and my usual and customary physical exam procedures followed) 1) GENERAL: obese alert and oriented. Appears anxious 2) HEAD: Normocephalic, atraumatic 3) HEENT: Pupils equal, round, reactive to light bilaterally. Sclera anicteric. Nasopharynx, oropharynx, clear, no lesions. Dry mucous membranes. 4) NECK: Full range of motion, no meningeal signs. 5) LUNGS: Clear auscultation bilaterally, no wheezes, no rhonchi, no retractions. 6) HEART: Regular rate and rhythm, no murmur, no heave, no gallop. 7) ABDOMEN: No guarding, no rebound, no focal tenderness, negative McBurney's, negative Villalobos's, negative Rovsing's, negative peritoneal sign, I am unable to elicit any abdominal pain on exam 8) MUSCULOSKELETAL: Moving all extremities, no focal areas of tenderness, no obvious trauma. No peripheral edema or discoloration. 9) BACK: No CVA tenderness, no midline vertebral tenderness, no fluctuance, no step-off, no obvious trauma, no visual or palpable abnormality. 10) SKIN: No rash, no petechiae. 11) Psychiatric: Patient is oriented X 3, there is no agitation. 12) NEURO: Awake, alert, and oriented to person, place and time. Answers questions appropriately. There were no obvious focal neurologic abnormalities. No cerebellar dysfunction. Cranial nerves 2 through to 12 intact. Normal steady gait. Upper and lower extremities bilaterally with strength 5 / 5, reflexes 2+. DIFFERENTIAL DIAGNOSIS: My differential diagnosis includes, but is not limited to, acute appendicitis, acute cholecystitis, bowel obstruction, acute pancreatitis, ovarian torsion, ectopic , gastritis The patient understands that this diagnosis is provisional and can never be 100% accurate. This is a partial list of diagnoses considered. These considerations are based on history, physical exam, past history and reassessment. (Lizzie Lassiter) Constitutional: Initial Vital Signs Temperature (C) 36.9 C 02/07/19 09:53 Heart Rate 67 02/07/19 09:53 Respiratory Rate 16 02/07/19 09:53 Blood Pressure 160/82 H 02/07/19 09:53 O2 Sat (%) 96 02/07/19 09:53 O2 Delivery Mode Room Air Allergies/Adverse Reactions: Bee Stings Allergy (Severe, Uncoded 02/07/19 09:53) Swelling/neck,face,throat Home Medications: Medication Instructions Recorded Ibuprofen 02/07/19 Medical Decision Making ED Course/Re-evaluation: 1240 p.m.: Re-evaluation after IV fluids, Ativan, Zofran patient is smiling, states that she is now asymptomatic, is able to tolerate oral intake. She denies dizziness, denies nausea. Re-examined her abdomen which remained soft no guarding no rebound. Unable to elicit any abdominal pain whatsoever. At this time doubt acute surgical abdominal pathology. I do not think that CT imaging is indicated at this time. Doubt acute appendicitis. Patient feels comfortable being discharged. All questions and concerns addressed by myself. Patient given my usual and customary discharge precautions and instructions regarding their clinical impression. Care of patient under supervision of secondary supervising physician Dr Divina Tristan . (Lizzie Lassiter) Other Provider: The patient was evaluated and managed by the Physician [employer]. My co- signature indicates that I have reviewed this chart and I agree with the findings and plan of care as documented. I am the secondary supervising physician. (Divina Tristan) - Data Points Laboratory Results: Laboratory Results 02/07/19 10:25 02/07/19 10:25 Medications Given: Discontinued Medications Sodium Chloride (Ns) 1,000 mls @ 0 mls/hr IV EDNOW ONE; Wide Open PRN Reason: Protocol Stop: 02/07/19 10:51 Last Admin: 02/07/19 11:10 Dose: 1,000 mls Lorazepam (Ativan Injection) 0.5 mg IVP EDNOW ONE Stop: 02/07/19 10:52 Last Admin: 02/07/19 11:09 Dose: 0.25 mg Ondansetron HCl (Zofran) 4 mg IVP EDNOW ONE Stop: 02/07/19 10:52 Last Admin: 02/07/19 11:09 Dose: 4 mg Ondansetron HCl (Zofran Odt 4 Mg Prepack#2) 1 btl TAKEHOME EDNOW ONE Stop: 02/07/19 12:57 Last Admin: 02/07/19 13:06 Dose: 1 btl Departure - Departure Disposition: Home, Routine, Self-Care Clinical Impression: Nausea & vomiting Condition: Good Instructions: Ondansetron (By mouth), Acute Nausea and Vomiting (ED) Additional Instructions: Seek immediate medical attention if you develop new or worsening symptoms, if you develop fevers, chills, inability to tolerate oral intake or any other symptoms that concerns you. Referrals: NONE *PRIMARY CARE P,. [Primary Care Provider] - As per Instructions Stand Alone Forms: Statement of Treatment
[2019-02-07 11:00] LABS: PLATELET COUNT 274 10^3/uL (150-400)
[2019-02-07] MEDS: ONDANSETRON 4 MG/2 ML VIAL IVP ONE ×2 (11:08→11:09)
[2019-02-07] MEDS: LORazepam 2 MG/ML INJ IVP ONE (11:09)
[2019-02-07] MEDS ORDERED: ONDANSETRON 4MG PREPACK#2 BTL TAKEHOME ONE (12:56)
[2019-02-07 13:08] VITALS: BP 126/96
== END 2019-02-07 13:06 | disposition home or self-care (01) ==
DX: R11.2 Nausea with vomiting, unspecified (principal); Z87.891 Personal history of nicotine dependence
CPT/HCPCS: 96374; J2060; J2405